=== PATIENT | female | born 1970 | race Caucasian/White ===

== ENCOUNTER 2020-03-01 05:08 | Emergency (ER) | payer BC, SELFPAY ==
[2020-03-01 05:09] VITALS: BP 208/106; PULSE 61; RESP 18; TEMP 36.7; O2SAT 97; BMI 31.6
--- NOTE | 2020-03-01 05:17 | CTR_ITS ---
PROCEDURE INFORMATION: Exam: CT Abdomen And Pelvis Without Contrast Exam date and time: 03/01/2020 5:18 AM Age: 49 years old Clinical indication: Abdominal pain; Flank; Left; Prior surgery; Surgery date: 6+ months; Surgery type: , gastric sleeve; Additional info: Flank/abdominal pain TECHNIQUE: Imaging protocol: Computed tomography of the abdomen and pelvis without contrast. Total DLP: 1699.42 mGy-cm Radiation optimization: All CT scans at this facility use at least one of these dose optimization techniques: automated exposure control; mA and/or kV adjustment per patient size (includes targeted exams where dose is matched to clinical indication); or iterative reconstruction. COMPARISON: CT Abdomen/Pelvis Renal [id number] 08/19/2019 8:05 AM FINDINGS: Lungs: The lung bases are clear. Liver: Unremarkable. Gallbladder and bile ducts: No definite gallbladder abnormality by CT. No biliary tree dilation. Pancreas: Unremarkable. Spleen: Unremarkable. Adrenals: Unremarkable. Kidneys and ureters: Mild left perinephric and periureteric stranding. Mild to moderate left hydronephrosis and hydroureter. There is a 3 mm distal left ureteral calculus, at the UVJ. The calculus is probably in the intramural portion of the distal ureter. It is possible that it has already been passed into the urinary bladder. Please correlate clinically. Somewhat complex appearing cystic lesion again seen in the right kidney, not significantly changed. No right hydronephrosis or visible right ureteral calculus. Stomach and bowel: Prior gastric surgery. There are no CT findings to strongly suggest diverticulitis. Appendix: The appendix is visualized and appears normal. Intraperitoneal space: No free air, ascites, or bowel distention. Vasculature: No evidence for abdominal aortic aneurysm. Lymph nodes: No retroperitoneal adenopathy. Bladder: Small calculus in the urinary bladder/left UVJ, as discussed above. Reproductive: No definite abnormal ovarian/adnexal cyst or mass by CT. Bones/joints: No significant acute finding. Soft tissues: Very small umbilical hernia, containing only fat. CT/CT kidney stone [id number] IMPRESSION: 1. 3 mm distal left ureteral calculus, see above details. 2. Mild to moderate left hydronephrosis and hydroureter. 3. No diverticulitis. 4. Other findings discussed above. Radiation Dose CTDIVOL = (mGy): DLP = 1699.42 (mGy-cm)
--- NOTE | 2020-03-01 05:18 | W.ED.ABDPA2 ---
Documented by User: Myrna Merino 03/01/20 05:21 HPI - Abdominal Pain General: Chief Complaint: Abdominal Pain Stated Complaint: LEFT SIDE FLANK PAIN Time Seen by Provider: 03/01/20 05:09 History of Present Illness: HPI narrative: Ms. Isidro is a nice 49-year-old female who comes in complaining of left flank pain. She describes pain is sharp in nature that radiates from her left back around her flank and into her groin. She is had associated nausea but does not vomit. She denies any fevers or chills. She denies any hematuria, dysuria, vaginal discharge or bleeding. She denies any similar symptoms in the past. She is not tried anything at home for this pain. EMS did give the patient 30 of Toradol IV in route with great relief of her pain although it is still present. The patient is unaware of any aggravating or alleviating factors with this. Associated Symptoms: Reports nausea; Denies chills, coffee ground emesis, constipation, GI cramping, diarrhea, dysuria, fever(s), hematochezia, hematuria, hematemesis, melena, syncope and vomiting Review of Systems General: Reports: other (negative unless marked) Const: Denies: fever, chills, body aches, fatigue, malaise or diaphoresis Eyes: Denies: change in vision or blurry vision ENMT: Denies: throat pain, painful swallowing, hoarseness, ear pain, ear discharge, Change in hearing or nasal discharge Card: Denies: chest pain, palpitations, irregular heart rhythm, syncope, pre-syncope, shortness of breath on exertion or shortness of breath when lying down Resp: Denies: shortness of breath, productive cough, non-productive cough, wheezing, coughing up blood or chest congestion GI: Reports: abdominal pain and nausea; Denies: vomiting, vomiting blood, coffee grounds in vomit, diarrhea, constipation, cramping, blood in stool or black tarry stool : Reports: flank pain; Denies: painful urination, urinary frequency, urinary urgency, decreased urine ouput, urinary incontinence or blood in urine Musc: Denies: neck pain, back pain, extremity pain, extremity swelling, joint pain, joint swelling, joint warmth or joint stiffness Skin/Breast: Denies: rash, skin tenderness or yellow skin Neuro: Denies: headache, numbness in extremities, weakness in extremities, changes in sensation, lack of coordination, difficulty walking, dizziness, vertigo or confusion Endo: Denies: excessive thirst, tired all the time, cold intolerance, excessive sweating, flushing or hot flashes Master/Lymph: Denies: easy bruising, easy bleeding, petechiae or enlarged lymph nodes All/Imm: Denies: hives, throat swelling, tongue swelling, facial swelling or acute wheezing PFSH ED PFSH: Medical History (Updated 03/01/20 @ 06:38 by Neville Dash DO) Coronary artery disease Depression Hypertension Surgical History (Updated 03/01/20 @ 05:21 by Myrna Merino) H/O cardiac catheterization H/O gastric bypass Previous section Social History Smoking and tobacco status: never smoked Physical Exam Const: COMMON NORMALS: no apparent distress, oriented x3, no limitations, healthy appearing and well nourished EXAM LIMITATIONS: no altered mental status GENERAL APPEARANCE: cooperative, well kempt and well developed ORIENTATION/CONSCIOUSNESS: Yes awake HENMT: COMMON NORMALS: normocephalic, head/scalp atraumatic, hearing grossly normal bilaterally, external ears normal, EAC's normal, external nose normal and moist oral mucous membranes HEAD & SCALP: normal to inspection, normocephalic and atraumatic FACE & SINUS: normal facial exam and face symmetric NOSE: external nose normal and nares normal EXTERNAL EAR: Yes external ears normal EXTERNAL AUDITORY CANAL: EAC's normal MOUTH: oral and palatal mucosa normal and tongue normal Eye: COMMON NORMALS: PERRL, EOMs intact bilaterally, conjunctivae normal and no scleral icterus GENERAL EYE: normal appearance of both eyes and normal light reflex CONJUNCTIVA: Yes conjunctivae normal SCLERA: sclerae normal CORNEA: Yes corneas normal PUPIL: Yes PERRL DIRECT OPHTHALMOSCOPY: Yes normal light reflex Neck/C-Spine: COMMON NORMALS: full ROM, no lymphadenopathy, supple, no meningeal signs and no JVD GENERAL: Yes normal visual inspection and Yes trachea midline CERVICAL SPINE: Yes cervical ROM normal Chest: COMMONS NORMALS: inspection of chest normal and palpation of chest normal Resp: COMMON NORMALS: normal respiratory effort, no retractions, no use of accessory muscles and clear to auscultation bilaterally EFFORT & INSPECTION: Yes able to speak in complete sentences AUSCULTATION: clear to auscultation bilaterally Cardio: COMMON NORMALS: no JVD, regular rate, regular rhythm, S1 normal heart sound, S2 normal heart sound, no gallops, no clicks, no murmurs and no rub JUGULAR VENOUS DISTENTION: no JVD RATE: regular rate RHYTHM: regular rhythm HEART SOUNDS: S1 normal and S2 normal GI: COMMON NORMALS: soft to palpation, non-tender, no hepatosplenomegaly and no masses INSPECTION: Yes normal to inspection PALPATION: Yes soft and Yes no hepatosplenomegaly : COMMON NORMALS: Yes no CVA tenderness BLADDER/KIDNEY EXAM: Yes no CVA tenderness Back/Pelvis: COMMON NORMALS: no CVA tenderness, thoracic and lumbar spine normal to inspection, no thoracic nor lumbar tenderness and thoraco-lumbar ROM normal Extremity: COMMON NORMALS: normal to inspection, full ROM, normal capillary refill, no joint enlargement, no clubbing, cyanosis or edema and no calf tenderness Neuro: COMMON NORMALS: oriented x3, CN's II-XII intact bilaterally, moves all extremities, no focal motor deficits and no sensory deficits noted MENINGEAL SIGNS: Yes no meningeal signs Psych: COMMON NORMALS: mental status grossly normal, thought process normal, cooperative, affect normal, speech normal and activity/motor behavior normal APPEARANCE: Yes well kempt SPEECH: Yes normal speech THOUGHT PROCESS: normal thought process Skin: COMMON NORMALS: no rashes or lesions noted, skin turgor normal, no jaundice, no petechiae and no mottling GENERAL SKIN EXAM: no rashes or lesions noted and turgor normal Course Vital Signs: Vital signs: Vital Signs Temperature 98.0 F 03/01/20 05:09 Pulse Rate 88 03/01/20 06:49 Respiratory Rate 18 03/01/20 06:49 Blood Pressure 180/90 03/01/20 06:49 Pulse Oximetry 99 03/01/20 06:49 MDM - Abdominal Pain Lab Data: Labs: Lab Results 03/01/20 03/01/20 03/01/20 Range/Units 05:00 05:00 05:20 WBC 11.2 H (4.0-10.0) 10^3/ uL RBC 4.47 (4.1-5.3) 10^6/u L Hgb 11.2 L (11.5-15.3) g/dL Hct 36.8 L (37.0-47.0) % MCV 82.3 (81-99) fL MCH 25.1 L (28.0-34.0) pg MCHC 30.4 (30.0-36.0) g/dL RDW 14.2 (12.1-15.1) % Plt Count 360 (130-400) 10^3/c mm MPV 9.9 (7.4-10.4) fL Neut % (Auto) 49.9 % Lymph % (Auto) 41.3 % [place] % (Auto) 6.8 % Eos % (Auto) 1.2 % Baso % (Auto) 0.4 % Neut # (Auto) 5.6 (1.8-7.7) 10^3/u L Lymph # (Auto) 4.6 (0.8-4.8) 10^3/u L [place] # (Auto) 0.8 (0.2-0.9) 10^3/u L Eos # (Auto) 0.1 (0.0-0.8) 10^3/u L Baso # (Auto) 0.1 (0.0-0.1) 10^3/u L Nucleated RBC % (a uto) 0 % Nucleated RBCs # 0.0 /100WBC Sodium 138 (136-145) mmol/L Potassium 3.3 L (3.5-5.1) mmol/L Chloride 101 (98-107) mmol/L Carbon Dioxide 22 (22-29) mmol/L Anion Gap 18.3 (5-19) BUN 13 (6-20) mg/dL Creatinine 0.9 (0.5-0.9) mg/dL GFR Calculation 67.1 L (90-130) mL/min Glucose 143 H (65-115) mg/dL Calculated Osmolal ity 285 (285-295) mOsm/k g Calcium 9.0 (8.5-10.5) mg/dL Total Bilirubin 0.5 (0.15-1.2) mg/dL AST 17 (0-32) U/L ALT 15 (0-33) U/L Alkaline Phosphata se 119 H (35-105) IU/L Total Protein 6.6 (6.6-8.7) g/dL Albumin 3.9 (3.5-5.2) g/dL Globulin 2.7 (1.3-4.6) g/dL Lipase 48 (13-60) U/L HCG, Qual Negative (Negative) Urine Color (Yellow) Urine Appearance (CLEAR) Urine pH (5-7) Ur Specific Gravit y (1.005-1.030) Urine Protein (Negative) Urine Glucose (UA) (Normal) Urine Ketones (Negative) Urine Blood (Negative) Urine Nitrate (Negative) Urine Bilirubin (NEGATIVE) Urine Urobilinogen (Negative) mg/dL Ur Leukocyte Rosa Elena ase (Negative) 03/01/20 Range/Units 05:20 WBC (4.0-10.0) 10^3/ uL RBC (4.1-5.3) 10^6/u L Hgb (11.5-15.3) g/dL Hct (37.0-47.0) % MCV (81-99) fL MCH (28.0-34.0) pg MCHC (30.0-36.0) g/dL RDW (12.1-15.1) % Plt Count (130-400) 10^3/c mm MPV (7.4-10.4) fL Neut % (Auto) % Lymph % (Auto) % [place] % (Auto) % Eos % (Auto) % Baso % (Auto) % Neut # (Auto) (1.8-7.7) 10^3/u L Lymph # (Auto) (0.8-4.8) 10^3/u L [place] # (Auto) (0.2-0.9) 10^3/u L Eos # (Auto) (0.0-0.8) 10^3/u L Baso # (Auto) (0.0-0.1) 10^3/u L Nucleated RBC % (a uto) % Nucleated RBCs # /100WBC Sodium (136-145) mmol/L Potassium (3.5-5.1) mmol/L Chloride (98-107) mmol/L Carbon Dioxide (22-29) mmol/L Anion Gap (5-19) BUN (6-20) mg/dL Creatinine (0.5-0.9) mg/dL GFR Calculation (90-130) mL/min Glucose (65-115) mg/dL Calculated Osmolal ity (285-295) mOsm/k g Calcium (8.5-10.5) mg/dL Total Bilirubin (0.15-1.2) mg/dL AST (0-32) U/L ALT (0-33) U/L Alkaline Phosphata se (35-105) IU/L Total Protein (6.6-8.7) g/dL Albumin (3.5-5.2) g/dL Globulin (1.3-4.6) g/dL Lipase (13-60) U/L HCG, Qual (Negative) Urine Color Yellow (Yellow) Urine Appearance Clear (CLEAR) Urine pH 7 (5-7) Ur Specific Gravit y 1.015 (1.005-1.030) Urine Protein Neg (Negative) Urine Glucose (UA) Norm (Normal) Urine Ketones Negative (Negative) Urine Blood Neg (Negative) Urine Nitrate Negative (Negative) Urine Bilirubin Neg (NEGATIVE) Urine Urobilinogen Norm (Negative) mg/dL Ur Leukocyte Rosa Elena ase Negative (Negative) Discharge Plan Discharge Patient Disposition: Home, Self-Care Clinical Impression: Nephrolithiasis Condition: Stable Prescriptions: New hydrocodone-acetaminophen 5-325 mg tablet 1 tab PO Q6H PRN (Reason: pain) Qty: 25 RF: 0 Zofran 4 mg tablet 4 mg PO Q6H PRN (Reason: nausea and vomiting) Qty: 20 RF: 0 Flomax 0.4 mg capsule 0.4 mg PO DAILY Qty: 30 RF: 0 No Action metoprolol succinate 50 mg Tablet Extended Release 24 Hr 50 mg PO DAILY RF: 0 Zoloft 100 mg Tablet 100 mg PO BID RF: 0 lisinopril 10 mg Tablet 10 mg PO DAILY RF: 0 Discharge Orders: Discharge Order (Routine); Ordered 03/01/20 Ordered By: Neville Dash Referrals: Gilmar Fleming MD [Physician] - (renal stone) Discharge Diet: Advance as tolerated Discharge Activity: Increase activity as tolerated Patient Instructions: Kidney Stones (ED) Discharge Date/Time: 03/01/20 06:52 Sign Out Sign Out Data: Patient Sign Out occurred on 03/01/20 at 06:31. Patient's care was discussed, and care was transferred from to Neville Dash DO. Coding Level of Care Code ED Campaign Developer for Chg Fwd Exam Comprehensive Documented by User: Neville Dash DO 03/02/20 08:32 HPI - Abdominal Pain General: Chief Complaint: Abdominal Pain Stated Complaint: LEFT SIDE FLANK PAIN Time Seen by Provider: 03/01/20 05:09 [facility] ED PFSH: Medical History (Updated 03/01/20 @ 06:38 by Neville Dash DO) Coronary artery disease Depression Hypertension Surgical History (Updated 03/01/20 @ 05:21 by Myrna Merino) H/O cardiac catheterization H/O gastric bypass Previous section Social History Smoking and tobacco status: never smoked Course Vital Signs: Vital signs: Vital Signs Temperature 98.0 F 03/01/20 05:09 Pulse Rate 88 03/01/20 06:49 Respiratory Rate 18 03/01/20 06:49 Blood Pressure 180/90 03/01/20 06:49 Pulse Oximetry 99 03/01/20 06:49 MDM - Abdominal Pain MDM Narrative: Medical decision making narrative: CT reviewed patient has a 2 mm stone at the UVJ we will go ahead and discharge her home her pain is well controlled at this time. Reviewed the findings with her will refer her to urology. Discharge home with pain medications tamsulosin and Zofran. Return if has uncontrolled pain Lab Data: Labs: Lab Results 03/01/20 03/01/20 03/01/20 Range/Units 05:00 05:00 05:20 WBC 11.2 H (4.0-10.0) 10^3/ uL RBC 4.47 (4.1-5.3) 10^6/u L Hgb 11.2 L (11.5-15.3) g/dL Hct 36.8 L (37.0-47.0) % MCV 82.3 (81-99) fL MCH 25.1 L (28.0-34.0) pg MCHC 30.4 (30.0-36.0) g/dL RDW 14.2 (12.1-15.1) % Plt Count 360 (130-400) 10^3/c mm MPV 9.9 (7.4-10.4) fL Neut % (Auto) 49.9 % Lymph % (Auto) 41.3 % [place] % (Auto) 6.8 % Eos % (Auto) 1.2 % Baso % (Auto) 0.4 % Neut # (Auto) 5.6 (1.8-7.7) 10^3/u L Lymph # (Auto) 4.6 (0.8-4.8) 10^3/u L [place] # (Auto) 0.8 (0.2-0.9) 10^3/u L Eos # (Auto) 0.1 (0.0-0.8) 10^3/u L Baso # (Auto) 0.1 (0.0-0.1) 10^3/u L Nucleated RBC % (a uto) 0 % Nucleated RBCs # 0.0 /100WBC Sodium 138 (136-145) mmol/L Potassium 3.3 L (3.5-5.1) mmol/L Chloride 101 (98-107) mmol/L Carbon Dioxide 22 (22-29) mmol/L Anion Gap 18.3 (5-19) BUN 13 (6-20) mg/dL Creatinine 0.9 (0.5-0.9) mg/dL GFR Calculation 67.1 L (90-130) mL/min Glucose 143 H (65-115) mg/dL Calculated Osmolal ity 285 (285-295) mOsm/k g Calcium 9.0 (8.5-10.5) mg/dL Total Bilirubin 0.5 (0.15-1.2) mg/dL AST 17 (0-32) U/L ALT 15 (0-33) U/L Alkaline Phosphata se 119 H (35-105) IU/L Total Protein 6.6 (6.6-8.7) g/dL Albumin 3.9 (3.5-5.2) g/dL Globulin 2.7 (1.3-4.6) g/dL Lipase 48 (13-60) U/L HCG, Qual Negative (Negative) Urine Color (Yellow) Urine Appearance (CLEAR) Urine pH (5-7) Ur Specific Gravit y (1.005-1.030) Urine Protein (Negative) Urine Glucose (UA) (Normal) Urine Ketones (Negative) Urine Blood (Negative) Urine Nitrate (Negative) Urine Bilirubin (NEGATIVE) Urine Urobilinogen (Negative) mg/dL Ur Leukocyte Rosa Elena ase (Negative) 03/01/20 Range/Units 05:20 WBC (4.0-10.0) 10^3/ uL RBC (4.1-5.3) 10^6/u L Hgb (11.5-15.3) g/dL Hct (37.0-47.0) % MCV (81-99) fL MCH (28.0-34.0) pg MCHC (30.0-36.0) g/dL RDW (12.1-15.1) % Plt Count (130-400) 10^3/c mm MPV (7.4-10.4) fL Neut % (Auto) % Lymph % (Auto) % [place] % (Auto) % Eos % (Auto) % Baso % (Auto) % Neut # (Auto) (1.8-7.7) 10^3/u L Lymph # (Auto) (0.8-4.8) 10^3/u L [place] # (Auto) (0.2-0.9) 10^3/u L Eos # (Auto) (0.0-0.8) 10^3/u L Baso # (Auto) (0.0-0.1) 10^3/u L Nucleated RBC % (a uto) % Nucleated RBCs # /100WBC Sodium (136-145) mmol/L Potassium (3.5-5.1) mmol/L Chloride (98-107) mmol/L Carbon Dioxide (22-29) mmol/L Anion Gap (5-19) BUN (6-20) mg/dL Creatinine (0.5-0.9) mg/dL GFR Calculation (90-130) mL/min Glucose (65-115) mg/dL Calculated Osmolal ity (285-295) mOsm/k g Calcium (8.5-10.5) mg/dL Total Bilirubin (0.15-1.2) mg/dL AST (0-32) U/L ALT (0-33) U/L Alkaline Phosphata se (35-105) IU/L Total Protein (6.6-8.7) g/dL Albumin (3.5-5.2) g/dL Globulin (1.3-4.6) g/dL Lipase (13-60) U/L HCG, Qual (Negative) Urine Color Yellow (Yellow) Urine Appearance Clear (CLEAR) Urine pH 7 (5-7) Ur Specific Gravit y 1.015 (1.005-1.030) Urine Protein Neg (Negative) Urine Glucose (UA) Norm (Normal) Urine Ketones Negative (Negative) Urine Blood Neg (Negative) Urine Nitrate Negative (Negative) Urine Bilirubin Neg (NEGATIVE) Urine Urobilinogen Norm (Negative) mg/dL Ur Leukocyte Rosa Elena ase Negative (Negative) Discharge Plan Discharge Patient Disposition: Home, Self-Care Clinical Impression: Nephrolithiasis Condition: Stable Prescriptions: New hydrocodone-acetaminophen 5-325 mg tablet 1 tab PO Q6H PRN (Reason: pain) Qty: 25 RF: 0 Zofran 4 mg tablet 4 mg PO Q6H PRN (Reason: nausea and vomiting) Qty: 20 RF: 0 Flomax 0.4 mg capsule 0.4 mg PO DAILY Qty: 30 RF: 0 No Action metoprolol succinate 50 mg Tablet Extended Release 24 Hr 50 mg PO DAILY RF: 0 Zoloft 100 mg Tablet 100 mg PO BID RF: 0 lisinopril 10 mg Tablet 10 mg PO DAILY RF: 0 Discharge Orders: Discharge Order (Routine); Ordered 03/01/20 Ordered By: Neville Dash Referrals: Gilmar Fleming MD [Physician] - (renal stone) Discharge Diet: Advance as tolerated Discharge Activity: Increase activity as tolerated Patient Instructions: Kidney Stones (ED) Discharge Date/Time: 03/01/20 06:52 Sign Out Sign Out Data: Patient Sign Out occurred on 03/01/20 at 06:31. Patient's care was discussed, and care was transferred from to Neville Dash DO. Coding Level of Care Code ED Campaign Developer for Shelleyg Fwd Exam Comprehensive
[2020-03-01 05:25] VITALS: RESP 18; O2SAT 98
[2020-03-01] MEDS: morphine 4 mg/mL SDV 1 mL IVP (05:25)
[2020-03-01] MEDS: ondansetron 2 mg/ML SDV 2 mL 4 MG IVP (05:25)
[2020-03-01] MEDS: sodium chloride 0.9% 1,000 ML 100 ML IV (05:25)
[2020-03-01 05:27] LABS: Basophils # 0.1 10^3/uL (0.0-0.1); Basophils % 0.4 %; Eosinophils # 0.1 10^3/uL (0.0-0.8); Eosinophils % 1.2 %; Hematocrit 36.8 % (37.0-47.0); Hemoglobin 11.2 g/dL (11.5-15.3); Lymphocytes # 4.6 10^3/uL (0.8-4.8); Lymphocytes % 41.3 %; Mean Corpuscular HGB Conc 30.4 g/dL (30.0-36.0); Mean Corpuscular Hemoglobin 25.1 pg (28.0-34.0); Mean Corpuscular Volume 82.3 fL (81-99); Mean Platelet Volume 9.9 fL (7.4-10.4); Monocytes # 0.8 10^3/uL (0.2-0.9); Monocytes % 6.8 %; Neutrophils # 5.6 10^3/uL (1.8-7.7); Neutrophils % 49.9 %; Nucleated Red Blood Cells % 0 %; Platelet Count 360 10^3/cmm (130-400); Red Blood Count 4.47 10^6/uL (4.1-5.3); Red Cell Distribution Width 14.2 % (12.1-15.1); White Blood Count 11.2 10^3/uL (4.0-10.0)
[2020-03-01 05:34] LABS: Bilirubin Urine Neg (NEGATIVE); Blood Urine Neg (Negative); Glucose Urine UA Norm (Normal); Ketones Urine Negative (Negative); Leukocyte Esterase Urine Negative (Negative); Nitrate Urine Negative (Negative); Protein Urine Neg (Negative); Specific Gravity, Urine 1.015 (1.005-1.030); Urine Appearance Clear (CLEAR); Urine Color Yellow (Yellow); Urobilinogen Urine Norm (Negative); pH Urine 7 (5-7)
[2020-03-01 05:35] LABS: Add Urine Culture? No
[2020-03-01 05:36] LABS: HCG Qualitative Urine. Negative (Negative)
--- NOTE | 2020-03-01 05:47 | PC.NURSE ---
pt to CT via stretcher at this time.
[2020-03-01 05:50] LABS: Alanine Aminotransferase 15 U/L (0-33); Albumin Level 3.9 g/dL (3.5-5.2); Alkaline Phosphatase 119 IU/L (35-105); Anion Gap 18.3 (5-19); Aspartate Amino Transferase 17 U/L (0-32); Blood Urea Nitrogen 13 mg/dL (6-20); Carbon Dioxide 22 mmol/L (22-29); Chloride 101 mmol/L (98-107); Globulin 2.7 g/dL (1.3-4.6); Glomerular Filtration Rate 67.1 mL/min (90-130); Glucose 143 mg/dL (65-115); Lipase 48 U/L (13-60); Osmolality Calculated 285 mOsm/kg (285-295); Potassium 3.3 mmol/L (3.5-5.1); Sodium 138 mmol/L (136-145); Total Bilirubin 0.5 mg/dL (0.15-1.2); Total Protein 6.6 g/dL (6.6-8.7)
--- NOTE | 2020-03-01 05:51 | PC.NURSE ---
pt back from CT at this time.
[2020-03-01 06:05] VITALS: BP 181/99; PULSE 86; RESP 18; O2SAT 99
[2020-03-01 06:49] VITALS: BP 180/90; PULSE 88; RESP 18; O2SAT 99
--- NOTE | 2020-03-02 12:57 | DCPLANNER ---
capture manager had message to schedule a follow up appointment for patient with Dr. Fleming. capture manager called the office of Dr. Fleming, spoke with Marina, gave clinic patients information. capture manager was told that patients information would be printed and given to Catie for review. Clinic will call patient with appointment information. capture manager will call for appointment information.
--- NOTE | 2020-03-03 09:14 | DCPLANNER ---
Patient has a follow up appointment scheduled for Tuesday, March 03, 2020 at 11:[address] Fleming. Clinic will call patient with appointment information.
--- NOTE | 2020-03-17 15:26 | DCPLANNER ---
Patient did attend appointment scheduled for 03.03.[address] Fleming.
== END 2020-03-01 06:52 | disposition home or self-care (01) ==
PROVIDERS: Emergency Medicine; Emergency Provider Family Medicine; Family Provider Family Medicine
DX: N20.0 Calculus of kidney (principal); I25.10 Atherosclerotic heart disease of native coronary artery without angina pectoris; I10 Essential (primary) hypertension; F32.9 Major depressive disorder, single episode, unspecified; Z98.84 Bariatric surgery status
CPT/HCPCS: 12345; 74176; 80053; 81001; 81025; 83690; 85025; 96361; 96374; 96375; 99282; 99284; J2270; J2405; J7030

== ENCOUNTER 2020-03-03 10:06 | Outpatient (CLI) | payer BC, SELFPAY ==
--- NOTE | 2020-03-03 10:00 | XR_ITS ---
WS: [id number] ABDOMEN KUB CLINICAL INFORMATION: Renal/ureteral calculi. COMPARISON: CT March 01, 2020 FINDINGS: Mild lumbar curve convex left. 3 mm distal left UVJ calculus seen on the recent CT not defi nitely seen on today's examination which may be due to small size and overlying sigmoid colon versus interval passage. Incidental pelvic phleboliths. No other significant findings. XR/XR KUB [id number] Impression: 1. 3 mm left UVJ calculus seen on the recent CT not definitely seen on today's study which may in part be due to small size and overlying sigmoid colon versu s interval passage. 2. Pelvic phleboliths.
== END 2020-03-03 10:07 | disposition home or self-care (01) ==
LOC: RADWPI 10:10
PROVIDERS: Family Provider Family Medicine; PCP Family Medicine; Visit Provider Urology
DX: N20.0 Calculus of kidney (principal); I87.8 Other specified disorders of veins
CPT/HCPCS: 74018; 81001; 82365

== ENCOUNTER 2020-03-17 09:01 | Outpatient (CLI) | payer BC, SELFPAY ==
--- NOTE | 2020-03-17 07:45 | XR_ITS ---
WS: [id number] ABDOMEN 1 VIEW(S) HISTORY: URETERAL CALCULUS COMPARISON: 03/01/2020 and 03/03/2020 Mild increased amount of air and fecal content. No renal calcifications. Previously described distal LEFT ureteral calcification is not identified. Phleboliths in the pelvis. Calcification overlying the LEFT ilium is in the soft tissues of the LEFT pelvis. No bone abnormality. XR/XR KUB [id number] IMPRESSION: No renal or ureteral calcifications identified.
== END 2020-03-17 09:02 | disposition home or self-care (01) ==
LOC: RAD 09:06
PROVIDERS: Family Provider Family Medicine; PCP Family Medicine; Visit Provider Urology
DX: N20.1 Calculus of ureter (principal)
CPT/HCPCS: 74018; 81001

== ENCOUNTER 2020-04-11 07:55 | Outpatient (CLI) | payer BC, SELFPAY ==
--- NOTE | 2020-04-11 07:58 | CT_ITS ---
WS: [id number] CT ABDOMEN AND PELVIS NONCONTRAST HISTORY: CALCULUS OF DISTAL URETER TECHNIQUE: Imaging performed through the abdomen and pelvis. Coronal and sagittal reformats are submi tted. All CT scans at [facility] use at least one of these dose optimization techniques: automated exposure control; mA and/or kV adjustment per patient size (includes targeted exams where d ose is matched to clinical indication); or iterative reconstruction. DLP: 1617.97 mGy.cm COMPARISON: 03/01/2020, 08/19/2019 Lower thorax: Lung bases are clear. No hiatal hernia. Liver: Normal, no mass or intrahepatic dilatation. Gallbladder: Unremarkable. Pancreas: Normal. Spleen: Normal. Adrenal glands: Normal. Right kidney: Again noted is a lobulated cystic mass with septations from the superior pole. Mass neftaly sures 5.1 x 4.8 x 3.3 cm. Similar in size to the prior study of 08/19/2019. This is not a simple cyst. No increase in size. No additional masses. No obstruction or calcifications. Left kidney: No obstruction or calcifications or mass. Perinephric stranding described on 03/01/2020 lewis s resolved. LEFT ureter is normal size with resolved. Ureteral stranding. Distal LEFT ureteral calcif ication is no longer present. Mild atherosclerosis with no aneurysm. No free fluid, intraperitoneal air or significant lymphadenopathy. GI tract: Prior gastric bypass. Normal appendix. No GI tract obstruction or colitis. Abdominal wall: Fat-containing umbilical hernia. Pelvis: No free fluid or adenopathy. Uterus is midline. No pelvic mass. Osseous structures: Unremarkable. CT/CT kidney stone [id number] IMPRESSION: 1. Interval resolution mild LEFT hydronephrosis and hydroureter. 2. Distal LEFT ureteral calcification is no longer present. 3. No change in the complex cyst with septations upper pole RIGHT kidney since 08/19/2019.
== END 2020-04-11 07:56 | disposition home or self-care (01) ==
LOC: RADWPI 07:57 → RAD 07:57
PROVIDERS: PCP Family Medicine; Visit Provider Urology
DX: N20.1 Calculus of ureter (principal); N13.30 Unspecified hydronephrosis; N28.1 Cyst of kidney, acquired
CPT/HCPCS: 74176; 81001

== ENCOUNTER 2021-08-20 17:47 | Emergency (ER) | payer BC, SELFPAY ==
[2021-08-20 17:57] VITALS: BP 181/106; PULSE 58; RESP 16; TEMP 36.9; O2SAT 100
--- NOTE | 2021-08-20 18:08 | CTR_ITS ---
PROCEDURE INFORMATION: Exam: CT Head Without Contrast Exam date and time: 08/20/2021 6:08 PM Age: 51 years old Clinical indication: Injury or trauma; Other: Hit head with her car door; Blunt trauma (contusions or hematomas) TECHNIQUE: Imaging protocol: Computed tomography of the head without contrast. Radiation optimization: All CT scans at this facility use at least one of these dose optimization techniques: automated exposure control; mA and/or kV adjustment per patient size (includes targeted exams where dose is matched to clinical indication); or iterative reconstruction. COMPARISON: No relevant prior studies available. RADIATION DOSE METRICS: Total DLP (mGy-cm): 923.38 FINDINGS: Brain: Normal. No hemorrhage. Unremarkable white matter. No mass effect. Cerebral ventricles: No ventriculomegaly. Paranasal sinuses: Visualized sinuses are unremarkable. No fluid levels. Mastoid air cells: Visualized mastoid air cells are well aerated. Bones/joints: Unremarkable. No acute fracture. Soft tissues: Unremarkable. CT/CT head wo con* [id number] IMPRESSION: No acute intracranial abnormality. Radiation Dose CTDIVOL = (mGy): DLP = 923.38 (mGy-cm)
[2021-08-20 18:31] VITALS: BP 167/87; PULSE 59; RESP 16; O2SAT 100
--- NOTE | 2021-08-20 18:33 | ED_ITS ---
HPI - Head Injury General: Chief complaint: Head Injury Stated complaint: HEAD INJURY Time Seen by Provider: 08/20/21 18:21 History of Present Illness: HPI Narrative: 51-year-old female comes in today with complaints of headache and nausea. Patient reports that she was going to get into her car to get her phone but she had backed out the other seat, when she reached in and grabbed it and when to come back out she hit the side of the door against the right mandaen. Since then patient has had nausea and significant headache. Patient denies any history of migraines. Patient does take medication for blood pressure and depression. Review of Systems General: Reports: 10 or more systems reviewed and unremarkable except in HPI and below Neuro: Reports: headache(s) PFSH ED PFSH: Medical History (Updated 08/20/21 @ 18:55 by LINDSAY Ramos) Calculus of distal ureter Coronary artery disease Depression Hydronephrosis, left Hypertension Renal cyst, right Surgical History H/O cardiac catheterization H/O gastric bypass Previous section Family History Mother CAD (coronary artery disease) Father , 72 CAD (coronary artery disease) Diabetes Social History Smoking and tobacco status: never smoked Alcohol intake: never Marital status: Single History of recent travel: No Physical Exam Const: COMMON NORMALS: no acute distress and patient oriented x3 GENERAL APPEARANCE: cooperative HENMT: COMMON NORMALS: normocephalic, TM's normal bilaterally and Normal external nose present HEAD & SCALP: normal to inspection and normocephalic NOSE: Normal external nose present TYMPANIC MEMBRANE: TM's normal bilaterally MOUTH: Normal oral and palatal mucosa present Eye: GENERAL EYE: appearance normal, both eyes and all related structures Neck/C-Spine: COMMON NORMALS: full ROM Lymph: LYMPHATIC: no lymphadenopathy noted Chest: COMMONS NORMALS: normal inspection of the chest Resp: COMMON NORMALS: normal respiratory effort EFFORT & INSPECTION: Yes able to speak in complete sentences Cardio: COMMON NORMALS: regular rate and regular rhythm RATE: regular rate RHYTHM: regular rhythm GI: COMMON NORMALS: non-tender Back/Pelvis: COMMON NORMALS: thoracic and lumbar spine normal to inspection Extremity: COMMON NORMALS: normal to inspection Neuro: COMMON NORMALS: patient oriented x3 and moves all extremities Psych: COMMON NORMALS: mental status grossly normal and cooperative Skin: COMMON NORMALS: no rashes or lesions noted GENERAL SKIN EXAM: no rashes or lesions noted Course Vital Signs: Vital signs: Vital Signs Temperature 98.4 F 08/20/21 17:57 Pulse Rate 59 L 08/20/21 18:31 Respiratory Rate 16 08/20/21 18:31 Blood Pressure 167/87 08/20/21 18:31 Pulse Oximetry 100 08/20/21 18:31 MDM - Head Injury MDM Narrative: Medical decision making narrative: 51-year-old female comes in for evaluation of head injury. On exam patient has some tenderness to the right mandaen area. No obvious ecchymosis or swelling is noted in the area. Respirations are even lungs are clear to auscultation. Vital signs are normal except for some elevated blood pressure. Differential diagnosis includes contusion, fracture, intracranial bleeding. CT of the head indicated no fractures or intracranial bleeding. Patient was given a 30 mg injection of ketorolac and 10 mg of Reglan for her headache and nausea. Patient was recommended to go home and rest and follow-up with primary care for further instructions. Patient was written for some ondansetron for nausea. I suspect patient has a mild concussion which should resolve over the next 2 to 3 days. Discharge Plan Discharge Patient Disposition: Home Clinical Impression: Concussion without loss of consciousness Qualifiers: Encounter type: initial encounter Qualified Code(s): S06.0X0A - Concussion without loss of consciousness, initial encounter Condition: Stable Prescriptions: New ondansetron 4 mg tablet,disintegrating 4 mg PO Q8H PRN (Reason: nausea and vomiting) Qty: 7 RF: 0 No Action metoprolol succinate 50 mg Tablet Extended Release 24 Hr 50 mg PO DAILY RF: 0 Zoloft 100 mg Tablet 100 mg PO BID RF: 0 lisinopril 10 mg Tablet 10 mg PO DAILY RF: 0 hydrocodone-acetaminophen 5-325 mg tablet 1 tab PO Q6H PRN (Reason: pain) Qty: 25 RF: 0 Zofran 4 mg tablet 4 mg PO Q6H PRN (Reason: nausea and vomiting) Qty: 20 RF: 0 Discharge Orders: Discharge ED (Routine); Ordered 08/20/21 Ordered By: Bj Santos Referrals: Toya Doan MD [Primary Care Provider] - Discharge Diet: Usual diet Discharge Activity: Increase activity as tolerated Patient Instructions: Minor Head Injury (ED), Opioid Safety Activity Restrictions/Additional Instructions: Home and rest. Drink plenty of fluids. Use acetaminophen or ibuprofen as needed for pain. Use ondansetron for breakthrough nausea. Activity as tolerated. Follow-up with primary care for further instruction. Return to the ER for new concerns. Stand Alone Forms: Work/School Release Coding Level of Care Code ED Ammunition Officer for Chg Fwd Exam Comprehensive
[2021-08-20] MEDS: metoclopramide 5 mg/mL SDV 2 mL 10 MG IM (18:46)
[2021-08-20] MEDS: ketorolac 30 mg/mL INJ IM (18:51)
== END 2021-08-20 19:12 | disposition home or self-care (01) ==
PROVIDERS: Emergency Provider Nurse Practitioner Family; PCP Family Medicine
DX: S06.0X0A Concussion without loss of consciousness, initial encounter (principal); I25.10 Atherosclerotic heart disease of native coronary artery without angina pectoris; I10 Essential (primary) hypertension; W22.09XA Striking against other stationary object, initial encounter
CPT/HCPCS: 70450; 96372; 99283; J1885; J2765

== ENCOUNTER 2022-06-26 07:01 | Outpatient (CLI) | payer BC, SELFPAY ==
[2022-06-26 07:53] VITALS: BMI 34.9
--- NOTE | 2022-06-26 07:55 | NMCV_ITS ---
NM jennifer perf SPECT r/s* [id number] Rylie Isidro Age: 52 Gender: F : 1970 Exam Date: 06/26/2022 08:30 Ordering Phys: Toya Doan MD Technologist: TIFFANIE Mejias Exam Location: [facility] Indications: Chest pain STRESS TEST Please see separate stress test report in [facility] for full findings IMAGE PROTOCOL Rest/Stress 1 Exercise Day Radiopharmaceutical Dose (mCi) Administration Site Administered by Rest: Tc-99m 10.5 IV TIFFANIE Mejias Sestamibi Stress:Tc-99m 33.0 IV TIFFANIE Mejias Sestamijonathan Rest: 26-Jun-2022 60 Discovery 630 Stress: 26-Jun-2022 30 Discovery 630 Radiopharmaceutical was injected at 85 % maximum heart rate. Images obtained in supine and prone position. SPECT RESULTS Technical Quality: Good Raw Data Analysis: Normal Image Corrections: No attenuation or motion correction applied Summed Stress Score: 0 Summed Rest Score: 4 Summed Difference Score: 0 PERFUSION FINDINGS Fairly uniform myocardial tracer uptake. No significant perfusion abnormalities were noted. FUNCTIONAL RESULTS (calculated via Gated SPECT) Stress Image LV EF (%): 71 Stress EDV (mL):99 TID: 0.95 Stress ESV (mL):29 FUNCTIONAL FINDINGS: Segmental wall motion analysis revealing no gross wall motion abnormalities IMPRESSIONS 1. Myocardial perfusion imaging revealing uniform myocardial tracer uptake with no significant perfusion normalities. 2. Normal LV ejection fraction 71%. 3. Segmental wall motion analysis revealing no gross wall motion abnormalities 4. Normal LV volume Low probability for coronary ischemia, based on the above findings Dr Sirena Fitzpatrick MD FACC (Electronically Signed) Final Date: 26 June 2022 18:19 S
--- NOTE | 2022-06-26 07:55 | ECG_ITS ---
[facility] Test Date: 2022-06-26 Pat Name: Rylie Isidro Department: Room: Gender: Female Investor: : 1970 Requested By: Toya Ruiz Order Number: [id number] Jane MD: Sirena Fitzpatrick M.D. Interpretive Statements NAME OF STUDY: EXERCISE SESTAMIBI STRESS TEST INDICATION: Chest tightness, PROCEDURE: The baseline electrocardiogram showed poor R wave progression nonspecific T wave changes. At the baseline, the patient's blood pressure was 178/98 mm Hg with a heart rate of 60. The patient exercised for 7 minutes and 55 seconds on a standard Wang protocol. Patient attained a maximum heart rate of 150 beats per minute(88% of the maximum predicted heart rate) with a blood pressure at the peak exercise of 219/98 mm Hg. The EKG at the peak exercise revealed diffuse nonspecific ST-T changes in the inferolateral leads. Patient did not have any chest pain or any significant arrhythmis with the exercise Sestamibi was injected 1 minute prior to the peak exercise During the recovery phase, there were no new changes. Blood pressure at the end of the recovery phase was 155/96 mm Hg with a heart rate of 76 per minute. CONCLUSION: 1. Nonspecific EKG changes with the treadmill exercise 2. No exercise-induced chest pain or cardiac arrhythmia 3. Fair exercise tolerance, attained a maximum of 10.2 METs. 4. Hypertensive response to exercise 5. Sestamibi/Sestamibi perfusion results pending; see separate report. Electronically Signed On 06-28-2022 17:46:32 CDT by Sirena Fitzpatrick M.D. [email or web address] [place] [place].Sr.Pago/store/OM/[id number]
[2022-06-26 09:40] VITALS: BP 155/96; PULSE 77
== END 2022-06-26 07:02 | disposition home or self-care (01) ==
PROVIDERS: PCP Family Medicine; Visit Provider Family Medicine
DX: R07.89 Other chest pain (principal)
CPT/HCPCS: 78452; 93017; A9500

== ENCOUNTER → 2023-05-07 09:16 | Outpatient (BNVA) | payer BC, SELFPAY | PROVIDERS: PCP Family Medicine; Visit Provider Internal Medicine Cardiovascular Disease | DX: I25.10 Atherosclerotic heart disease of native coronary artery without angina pectoris (principal) | CPT/HCPCS: 93005 ==

== ENCOUNTER 2023-05-19 08:36 | Outpatient (CLI) | payer BC, SELFPAY ==
--- NOTE | 2023-05-19 08:45 | USCV_ITS ---
Rylie Isidro Age: 53 Gender: F : 1970 Exam Date: 05/19/2023 09:09 Ordering Phys: Sharon Johnson MD ([email or web address]) Technologist: Ai Linares [place] [facility] [place]: CAD., SOB, HTN BP: 132 / 80 HR: 50 Rhythm: Sinus Technical Quality: Adequate MEASUREMENTS (Male / Female) Normal Values 2D ECHO LV Diastolic Diameter PLAX 4.3 cm 4.2 - 5.9 / 3.9 - 5.3 cm LV Systolic Diameter PLAX 2.3 cm IVS Diastolic Thickness 1.7 cm 0.6 - 1.0 / 0.6 - 0.9 cm IVS Systolic Thickness 1.8 cm LVPW Diastolic Thickness 1.0 cm 0.6 - 1.0 / 0.6 - 0.9 cm LVPW Systolic Thickness 2.1 cm LV Ejection Fraction 2D Teich 79.0 % LV Ejection Fraction MOD 2C 59.2 % LV Ejection Fraction 2C AL 59.5 % LA Diameter 3.8 cm LA Width 4.0 cm LA Height 6.0 cm RA Width 3.2 cm RA Height 4.1 cm Aorta at Sinotubular Diameter 2.6 cm IVC Diameter 1.6 cm M-MODE Aortic Annulus Diameter 2.8 cm LA Ao Ratio MM 1.4 MV E Point Septal Separation 0.8 cm DOPPLER AV Peak Velocity 131.0 cm/s LVOT Peak Velocity 92.0 cm/s MV Peak Velocity 121.0 cm/s MV Area PHT 4.4 cm squared Mitral E to A Ratio 2.1 MV E' Velocity 62.5 cm/s Mitral E to MV E' Ratio 8.5 Mitral E to LV E' Lateral Ratio 7.5 Mitral E to LV E' Septal Ratio 9.8 TR Peak Velocity 258.0 cm/s TR Peak Gradient 26.6 mmHg PV Peak Velocity 76.0 cm/s RV Acceleration Time 0.2 s RV Ejection Time 0.4 s RV AcT/ET 0.5 FINDINGS Left Ventricle Normal left ventricular size, systolic function and wall thickness, with no regional wall motion abnormalities. Left ventricular ejection fraction is estimated at 60 %. Normal diastolic function. Right Ventricle Normal right ventricular size and systolic function. Right ventricular systolic pressure 30 mmHg. Right Atrium Normal right atrial size. Left Atrium Normal left atrial size. Mitral Valve Structurally normal mitral valve. No mitral valve stenosis. Mild mitral valve regurgitation. Aortic Valve Structurally normal trileaflet aortic valve. No aortic valve stenosis. No aortic valve regurgitation. Tricuspid Valve Structurally normal tricuspid valve. No tricuspid valve stenosis. Trace tricuspid valve regurgitation. Pulmonic Valve Structurally normal pulmonic valve. No pulmonary valve stenosis. Trace pulmonary valve regurgitation. Pericardium No pericardial effusion. Aorta Normal size aortic root and proximal ascending aorta. IVC Normal IVC dimension with >50% respiratory change of the inferior vena cava. CONCLUSIONS 1. Normal left ventricular size, systolic function and wall thickness, with no regional wall motion abnormalities. Left ventricular ejection fraction is estimated at 60 %. Normal diastolic function. 2. Normal right ventricular size and systolic function. 3. Mild mitral valve regurgitation. 4. Comparison to previous study dated 02/26/2016 is not possible d/t TDS study. Sharon Johnson MD (Electronically Signed) Final Date: 21 May 2023 15:06 S
== END 2023-05-19 08:37 | disposition home or self-care (01) ==
PROVIDERS: PCP Family Medicine; Visit Provider Internal Medicine Cardiovascular Disease
DX: I25.10 Atherosclerotic heart disease of native coronary artery without angina pectoris (principal); R06.02 Shortness of breath
CPT/HCPCS: 93306

== ENCOUNTER 2023-06-17 19:11 | Emergency (ER) | payer BC, SELFPAY ==
[2023-06-17] VITALS (9 sets, daily range): BP systolic 145–204; BP diastolic 72–120; PULSE 50–80; RESP 14–20; TEMP 36.7; O2SAT 94–100; BMI 38.2
--- NOTE | 2023-06-17 19:26 | ECG_ITS ---
[facility] Test Date: 2023-06-17 Pat Name: Rylie Isidro Department: Room: Gender: Female Student Officer: : 1970 Requested By: Candido Coley Order Number: [id number] Jane MD: Sharon Johnson M.D. Measurements Intervals [place] Rate: 53 P: 31 TN: 177 QRS: 18 QRSD: 97 T: 19 QT: 407 QTc: 383 Interpretive Statements SINUS BRADYCARDIA LOW QRS VOLTAGE IN PRECORDIAL LEADS [QRS DEFLECTION < 1.0 mV IN CHEST LEADS] POSSIBLE ANTERIOR MYOCARDIAL INFARCTION , OF INDETERMINATE AGE [30 ms Q WAVE IN V3/V4, OR R < 0.2 mV IN V4] Compared to ECG 05/07/2023 09:22:47 Myocardial infarct finding now present Electronically Signed On 06-17-2023 20:10:49 CDT by Sharon Johnson M.D. [email or web address] GmbHwhitfield medical surgical hospitalTicket Mavrixst[facility].[employer]/store/Ov/[id number]
--- NOTE | 2023-06-17 19:26 | XRR_ITS ---
PROCEDURE INFORMATION: Exam: XR Chest Exam date and time: 06/17/2023 7:40 PM Age: 53 years old Clinical indication: Pain; Chest pressure; Additional info: Cp TECHNIQUE: Imaging protocol: Radiologic exam of the chest. Views: 1 view. COMPARISON: CR XR chest 1V [id number] 05/03/2019 1:34 PM FINDINGS: Lungs: Unremarkable. No consolidation. Pleural spaces: Unremarkable. No pleural effusion. No pneumothorax. Heart/Mediastinum: Cardiomegaly. Bones/joints: Unremarkable. XR/XR chest 1V portable [id number] IMPRESSION: Cardiomegaly, negative for infiltrate
[2023-06-17] MEDS: aspirin 81 mg Chew Tablet 324 MG PO (19:36)
[2023-06-17] MEDS: hyDRALAzine 20 mg/mL INJ 1 mL 10 MG IVP ×3 (19:36→22:21)
--- NOTE | 2023-06-17 19:36 | W.ED.CHESTPA ---
HPI - Chest Pain General: Chief Complaint: Chest Pain Stated Complaint: cp Time Seen by Provider: 06/17/23 19:24 Source: patient Mode of arrival: ambulatory Limitations: no limitations History of Present Illness: 53-year-old female states that she been having chest pain off and on for months she actually scheduled see cardiology tomorrow states that today she has felt very fatigued and weak she had some chest pains with tingling down her left arm. States she been hypertensive today more than normal her blood pressure is over 200 here. She denies any worsening proving factors states that currently she is having no chest pain denies any shortness of breath. Associated symptoms: Deny abdominal pain, dyspnea, fever(s), nausea or vomiting Review of Systems Const: Reports: fatigue and malaise; Denies: fever(s), chills, body aches or change in appetite Eyes: Denies: blurry vision or eye discomfort ENMT: Denies: throat pain or dental pain Card: Reports: chest pain Resp: Denies: dyspnea GI: Denies: abdominal pain, nausea, vomiting or diarrhea Musc: Denies: neck pain or back pain Skin/Breast: Denies: rash Neuro: Denies: headache(s) PFSH ED PFSH: Medical History (Updated 06/17/23 @ 22:54 by Candido Coley MD) Calculus of distal ureter Coronary artery disease Depression Hydronephrosis, left Hypertension Renal cyst, right Surgical History H/O cardiac catheterization H/O gastric bypass Previous section Family History Mother CAD (coronary artery disease) Father , 72 CAD (coronary artery disease) Diabetes Myocardial infarction Social History Smoking and tobacco status: never smoked Alcohol intake: never Substance/Drug Use: never Marital status: Single Physical Exam Const: COMMON NORMALS: no acute distress, patient oriented x3 and healthy appearing HENMT: COMMON NORMALS: normocephalic and atraumatic HEAD & SCALP: normocephalic and atraumatic Eye: COMMON NORMALS: EOMs intact bilaterally and conjunctivae normal CONJUNCTIVA: Yes conjunctivae normal Neck/C-Spine: COMMON NORMALS: full ROM and supple Chest: COMMONS NORMALS: normal inspection of the chest and normal palpation of entire chest wall Resp: COMMON NORMALS: normal respiratory effort, No retractions, No use of accessory muscles and clear to auscultation bilaterally AUSCULTATION: clear to auscultation bilaterally Cardio: COMMON NORMALS: regular rate, regular rhythm and No murmurs present (Cardio) RATE: regular rate RHYTHM: regular rhythm GI: COMMON NORMALS: Normal to inspection, nondistended, normoactive bowel sounds present, Soft to palpation, non-tender and no masses PALPATION: Yes Soft to palpation Extremity: COMMON NORMALS: normal to inspection and full ROM Neuro: COMMON NORMALS: patient oriented x3, moves all extremities and no focal motor deficits Psych: COMMON NORMALS: mental status grossly normal, Normal thought process present and cooperative THOUGHT PROCESS: Normal thought process present Skin: COMMON NORMALS: no rashes or lesions noted and no wounds GENERAL SKIN EXAM: no rashes or lesions noted Course Vital Signs: Vital signs: Vital Signs Temperature 98.1 F 06/17/23 19:19 Pulse Rate 80 06/17/23 22:56 Respiratory Rate 20 H 06/17/23 22:56 Blood Pressure 163/86 06/17/23 22:56 Pulse Oximetry 97 06/17/23 22:56 Oxygen Delivery Me thod Room Air 06/17/23 22:56 MDM - Chest Pain Medical Decision Making Patient presents here with chest pains atypical in nature she been having it for months she is well-appearing here she has been hypertensive. CT is normal blood pressure is improved she does see cardiology tomorrow she is to follow-up as scheduled return if worsening she understands agrees to plan. Medical Records I reviewed the patient's medical records. Lab Data I reviewed the patient's lab results. 06/17/23 19:39 06/17/23 19:39 Radiology Impressions Chest X-Ray 06/17/23 19:26 IMPRESSION: Cardiomegaly, negative for infiltrate Head CT 06/17/23 22:21 IMPRESSION: No acute intracranial abnormality. Laboratory Results WBC 10.9 10^3/uL (4.0-10.0) H 06/17/23 19:39 RBC 4.81 10^6/uL (4.1-5.3) 06/17/23 19:39 Hgb 9.3 g/dL (11.5-15.3) L 06/17/23 19:39 Hct 34.8 % (37.0-47.0) L 06/17/23 19:39 MCV 72.3 fl (81-99) L 06/17/23 19:39 MCH 19.3 pg (28.0-34.0) L 06/17/23 19:39 MCHC 26.7 g/dL (30.0-36.0) L 06/17/23 19:39 RDW 17.9 % (12.1-15.1) H 06/17/23 19:39 Plt Count 385 10^3/cmm (130-400) 06/17/23 19:39 MPV 9.2 fL (7.4-10.4) 06/17/23 19:39 Neut % (Auto) 56.3 % 06/17/23 19:39 Lymph % (Auto) 33.9 % 06/17/23 19:39 [place] % (Auto) 6.6 % 06/17/23 19:39 Eos % (Auto) 2.0 % 06/17/23 19:39 Baso % (Auto) 0.8 % 06/17/23 19:39 Neut # (Auto) 6.16 10^3/uL (1.8-7.7) 06/17/23 19:39 Lymph # (Auto) 3.7 10^3/uL (0.8-4.8) 06/17/23 19:39 [place] # (Auto) 0.7 10^3/uL (0.2-0.9) 06/17/23 19:39 Eos # (Auto) 0.2 10^3/uL (0.0-0.8) 06/17/23 19:39 Baso # (Auto) 0.1 10^3/uL (0.0-0.1) 06/17/23 19:39 Nucleated RBC % (auto) 0 % 06/17/23 19:39 Nucleated RBCs # 0.0 /100WBC 06/17/23 19:39 PT 12.40 SECONDS (12.1-14.9) 06/17/23 19:39 INR 0.90 (0.8-1.2) 06/17/23 19:39 Sodium 139 mmol/L (136-145) 06/17/23 19:39 Potassium 4.4 mmol/L (3.5-5.1) 06/17/23 19:39 Chloride 104 mmol/L (98-107) 06/17/23 19:39 Carbon Dioxide 25 mmol/L (22-29) 06/17/23 19:39 Anion Gap 14.4 (5-19) 06/17/23 19:39 BUN 13 mg/dL (6-20) 06/17/23 19:39 Creatinine 0.8 mg/dL (0.5-0.9) 06/17/23 19:39 GFR Calculation 75.6 mL/min (90-130) L 06/17/23 19:39 Glucose 86 mg/dL (65-115) 06/17/23 19:39 Calculated Osmolality 287 mOsm/kg (285-295) 06/17/23 19:39 Calcium 8.8 mg/dL (8.5-10.5) 06/17/23 19:39 Total Bilirubin 0.2 mg/dL (0.15-1.2) 06/17/23 19:39 AST 16 U/L (0-32) 06/17/23 19:39 ALT 11 U/L (0-33) 06/17/23 19:39 Alkaline Phosphatase 134 U/L (35-105) H 06/17/23 19:39 Troponin T Baseline 6 ng/L (0-10) 06/17/23 19:39 Troponin T 120 Minute 8.17 ng/L (0-10) 06/17/23 21:46 Delta Troponin T 2.17 ABS# (0-10) 06/17/23 21:46 Total Protein 6.9 g/dL (6.6-8.7) 06/17/23 19:39 Albumin 4.0 g/dL (3.5-5.2) 06/17/23 19:39 Globulin 2.9 g/dL (1.3-4.6) 06/17/23 19:39 TSH 2.02 uIU/mL (0.27-4.20) 06/17/23 19:39 EKG Data EKG 1: I personally reviewed and interpreted this EKG as follows: EKG interpretation date: 06/17/23 EKG interpretation time: 19:17 Interpretation: sinus sana hr [address] or t wave abnormalities qrs 97 qtc 389 EKG 2: I personally reviewed and interpreted this EKG as follows: EKG interpretation date: 06/17/23 EKG interpretation time: 21:37 Interpretation: nsr hr [address] or t wave abnormalities qrs 96qtc 416 Discharge Plan Discharge Patient Disposition: Home Clinical Impression: Chest pain, Hypertension Condition: Stable Prescriptions: No Action escitalopram oxalate 20 mg tablet 20 mg PO DAILY lisinopril 20 mg tablet 20 mg PO DAILY aspirin [Adult Low Dose Aspirin] 81 mg tablet,delayed release (DR/EC) 81 mg PO DAILY metoprolol succinate 50 mg Tablet Extended Release 24 Hr 50 mg PO DAILY Discharge Orders: Discharge ED (Routine); Ordered 06/17/23 Ordered By: Candido Coley Referrals: Toya Doan MD [Primary Care Provider] - Discharge Diet: Advance as tolerated Discharge Activity: Resume usual activity Patient Instructions: Chest Pain (ED), Hypertension (ED) Coding Level of Care Code ED Hide Measuring Machine Operator for Chg Quin
[2023-06-17 19:56] LABS: Basophils # 0.1 10^3/uL (0.0-0.1); Basophils % 0.8 %; Eosinophils # 0.2 10^3/uL (0.0-0.8); Hematocrit 34.8 % (37.0-47.0); Hemoglobin 9.3 g/dL (11.5-15.3); Lymphocytes # 3.7 10^3/uL (0.8-4.8); Lymphocytes % 33.9 %; Mean Corpuscular HGB Conc 26.7 g/dL (30.0-36.0); Mean Corpuscular Hemoglobin 19.3 pg (28.0-34.0); Mean Corpuscular Volume 72.3 fl (81-99); Mean Platelet Volume 9.2 fL (7.4-10.4); Monocytes # 0.7 10^3/uL (0.2-0.9); Monocytes % 6.6 %; Neutrophils # 6.16 10^3/uL (1.8-7.7); Neutrophils % 56.3 %; Nucleated Red Blood Cells % 0 %; Platelet Count 385 10^3/cmm (130-400); Red Blood Count 4.81 10^6/uL (4.1-5.3); Red Cell Distribution Width 17.9 % (12.1-15.1); White Blood Count 10.9 10^3/uL (4.0-10.0)
[2023-06-17 20:26] LABS: Troponin(5th) Baseline 6 ng/L (0-10)
[2023-06-17] MEDS: acetaminophen 500 mg Tablet 1000 MG PO (21:10)
--- NOTE | 2023-06-17 21:37 | ECG_ITS ---
[facility] Test Date: 2023-06-17 Pat Name: Rylie Isidro Department: Room: Gender: Female Instrumentation Designer: : 1970 Requested By: Candido Coley Order Number: [id number] Jane MD: Sharon Johnson M.D. Measurements Intervals [place] Rate: 71 P: 47 WA: 209 QRS: 9 QRSD: 96 T: 13 QT: 394 QTc: 429 Interpretive Statements SINUS RHYTHM LOW QRS VOLTAGE IN PRECORDIAL LEADS [QRS DEFLECTION < 1.0 mV IN CHEST LEADS] Compared to ECG 06/17/2023 19:17:04 Sinus bradycardia no longer present Myocardial infarct finding no longer present Electronically Signed On 06-18-2023 10:22:01 CDT by Sharon Johnson M.D. [email or web address]/[id number]
[2023-06-17 22:13] LABS: Troponin 5 2HR 8.17 ng/L (0-10)
[2023-06-17 22:16] LABS: Alanine Aminotransferase 11 U/L (0-33); Alkaline Phosphatase 134 U/L (35-105); Anion Gap 14.4 (5-19); Aspartate Amino Transferase 16 U/L (0-32); Blood Urea Nitrogen 13 mg/dL (6-20); Calcium 8.8 mg/dL (8.5-10.5); Carbon Dioxide 25 mmol/L (22-29); Chloride 104 mmol/L (98-107); Globulin 2.9 g/dL (1.3-4.6); Glomerular Filtration Rate 75.6 mL/min (90-130); Glucose 86 mg/dL (65-115); Osmolality Calculated 287 mOsm/kg (285-295); Potassium 4.4 mmol/L (3.5-5.1); Sodium 139 mmol/L (136-145); Total Bilirubin 0.2 mg/dL (0.15-1.2); Total Protein 6.9 g/dL (6.6-8.7)
[2023-06-17 22:19] LABS: Troponin 5 2HR Delta 2.17 ABS# (0-10)
--- NOTE | 2023-06-17 22:21 | CTR_ITS ---
PROCEDURE INFORMATION: Exam: CT Head Without Contrast Exam date and time: 06/17/2023 10:31 PM Age: 53 years old Clinical indication: Pain; Headache not specified; Additional info: VARGAS TECHNIQUE: Imaging protocol: Computed tomography of the head without contrast. Radiation optimization: All CT scans at this facility use at least one of these dose optimization techniques: automated exposure control; mA and/or kV adjustment per patient size (includes targeted exams where dose is matched to clinical indication); or iterative reconstruction. REPORTING DATA: Count of CT and Cardiac NM exams in prior 12 months: This patient has received [address] and 0 known cardiac nuclear medicine studies in the 12 months prior to the current study. COMPARISON: CT head wo con* [id number] 08/20/2021 6:11 PM RADIATION DOSE METRICS: Total DLP (mGy-cm): 1126.48 FINDINGS: Brain: Normal. No hemorrhage. Unremarkable white matter. No mass effect. Cerebral ventricles: No ventriculomegaly. Paranasal sinuses: Visualized sinuses are unremarkable. No fluid levels. Mastoid air cells: Visualized mastoid air cells are well aerated. Bones/joints: Unremarkable. No acute fracture. Soft tissues: Unremarkable. CT/CT head wo con* [id number] IMPRESSION: No acute intracranial abnormality.
[2023-06-17 22:23] LABS: Thyroid Stimulating Hormone 2.02 uIU/mL (0.27-4.20)
[2023-06-17] MEDS: metoclopramide 5 mg/mL SDV 2 mL IVP (22:52)
[2023-06-17] MEDS: diphenhydrAMINE 50 mg/mL SDV 1mL 25 MG IVP (22:52)
== END 2023-06-17 23:06 | disposition home or self-care (01) ==
PROVIDERS: Emergency Provider Emergency Medicine; PCP Family Medicine
DX: R07.9 Chest pain, unspecified (principal); I10 Essential (primary) hypertension; Z79.82 Long term (current) use of aspirin; I25.10 Atherosclerotic heart disease of native coronary artery without angina pectoris
CPT/HCPCS: 36415; 70450; 71045; 80053; 84443; 84484; 85025; 85610; 93005; 96374; 96375; 96376; 99285; J0360; J1200; J2765

== ENCOUNTER 2023-06-25 07:51 | Outpatient (CLI) | payer BC, SELFPAY ==
--- NOTE | 2023-06-25 08:00 | USCV_ITS ---
Rylie Isidro Age: 53 Gender: F : 1970 Exam Date: 06/25/2023 08:00 Ordering Phys: Catie Wiseman Technologist: CT [place]am [place] [facility] [place] Indication: htn Aortic Velocity @ SMA (cm/s) 140 RIGHT KIDNEY LEFT KIDNEY Velocity (cm/s) Velocity (cm/s) Sys/Parrish Sys/Parrish Resistive Index Resistive Index 126.0 / 34.6 0.73 Proximal Renal Artery 73.6 / 18.0 0.76 81.5 / 28.6 0.65 Mid Renal Artery 61.8 / 14.0 0.77 99.8 / 26.3 0.74 Distal Renal Artery 37.1 / 11.2 0.70 70.7 / 22.2 0.69 Hilar 30.3 / 11.8 0.61 51.3 / 24.9 0.51 Upper Pole 41.4 / 18.2 0.56 26.8 / 7.1 0.74 Mid Pole 27.9 / 9.6 0.65 29.3 / 11.6 0.61 Lower Pole 27.4 / 9.6 0.65 0.90 Renal Aortic Ratio 0.53 Accleration Index (cm/sec2) 1555.0 Hilar 597.00 0 229.00 Upper Pole 159.00 505.00 Mid Pole 91.00 145.00 Lower Pole 273.00 114.5 Kidney Length (mm) 113.5 FINDINGS normal us CONCLUSIONS Normal kidney dimensions bilaterally. No hydronephrosis Normal renal arterial Doppler velocities and indices. No significant renal artery stenosis Eddie Christian MD (Electronically Signed) Final Date: 26 June 2023 17:21 S
== END 2023-06-25 07:52 | disposition home or self-care (01) ==
PROVIDERS: PCP Family Medicine; Visit Provider Nurse Practitioner Family
DX: I10 Essential (primary) hypertension (principal)
CPT/HCPCS: 93975

== ENCOUNTER 2024-03-25 15:38 | Outpatient (CLI) | payer OTHER, SELFPAY ==
--- NOTE | 2024-03-25 15:30 | MM_ITS ---
WS: [id number] SCREENING DIGITAL BREAST TOMOSYNTHESIS MAMMOGRAM WITH CAD HISTORY: SCREENING COMPARISON: 11/10/2018 Bilateral CC and MLO with tomosynthesis and synthetic mammography submitted. Computer aided detection analyzed. Breast composition: There are scattered areas of fibroglandular density. There is a new asymmetry neftaly suring 5 mm seen only on the LEFT CC projection in the medial mid breast. This will need to be furthe r evaluated. Additional benign calcifications. IMPRESSION: MM/[place] [id number] BI-RADS: 0-Incomplete: Need additional imaging evaluation FOLLOW UP: Need Additional Imaging LEFT breast: Spot compression views (CC ). True ML. Ultrasound to follow if abn ormality persists.
== END 2024-03-25 15:39 | disposition home or self-care (01) ==
LOC: MOBLMAM 15:51
PROVIDERS: PCP Family Medicine; Visit Provider Family Medicine
DX: Z12.31 Encounter for screening mammogram for malignant neoplasm of breast (principal); R92.1 Mammographic calcification found on diagnostic imaging of breast; R92.8 Other abnormal and inconclusive findings on diagnostic imaging of breast
CPT/HCPCS: 77063; 77067

== ENCOUNTER 2024-04-27 13:50 | Outpatient (CLI) | payer OTHER, SELFPAY ==
--- NOTE | 2024-04-27 14:02 | MM_ITS ---
WS: [id number] DIAGNOSTIC LEFT DIGITAL TOMOSYNTHESIS MAMMOGRAPHY WITH CAD. HISTORY: ABNORMAL MAMMO COMPARISON: 03/25/2024 and 11/10/2018 Technique: Spot compression views LEFT CC and MLO and LEFT mediolateral. Breast composition: There are scattered areas of fibroglandular density. Asymmetry noted in the media l breast does not persist with additional imaging. No residual suspicious mass. No calcifications. MM/[place] [id number] IMPRESSION: BI-RADS: 2-Benign FOLLOW UP: 1 Year Follow-up Return to annual screening mammography.
== END 2024-04-27 13:51 | disposition home or self-care (01) ==
LOC: RAD 13:50
PROVIDERS: PCP Family Medicine; Visit Provider Family Medicine
DX: Z12.31 Encounter for screening mammogram for malignant neoplasm of breast (principal); R92.8 Other abnormal and inconclusive findings on diagnostic imaging of breast; R92.322 Mammographic fibroglandular density, left breast
CPT/HCPCS: 77061; G0279

== ENCOUNTER 2024-11-28 22:42 | Emergency (ER) | payer OTHER, SELFPAY ==
--- NOTE | 2024-11-28 22:43 | ECG_ITS ---
[employer] [facility] Test Date: 2024-11-28 Pat Name: Rylie Isidro Department: Room: Gender: Female Lead Burner: : 1970 Requested By: Nile Chow Order Number: [id number] Jane MD: Oleg Macario M.D. Measurements Intervals [place] Rate: 74 P: 51 [place]: 199 QRS: -30 QRSD: 93 T: 3 QT: 375 QTc: 419 Interpretive Statements SINUS RHYTHM LOW QRS VOLTAGE IN PRECORDIAL LEADS [QRS DEFLECTION < 1.0 mV IN CHEST LEADS] POSSIBLE ANTERIOR MYOCARDIAL INFARCTION , PROBABLY OLD [30 ms Q WAVE IN V3/V4, OR R < 0.2 mV IN V4] Compared to ECG 06/17/2023 21:37:36 Myocardial infarct finding now present Electronically Signed On 11-29-2024 16:49:53 EDGER FEEDER by Oleg Macario M.D. [id number]
[2024-11-28 22:44] VITALS: BP 222/94; PULSE 72; RESP 22; TEMP 36.7; O2SAT 98; BMI 39.9
--- NOTE | 2024-11-28 22:47 | XRR_ITS ---
PROCEDURE INFORMATION: Exam: XR Chest Exam date and time: 11/28/2024 11:14 PM Age: 54 years old Clinical indication: Chest pressure; Patient HX: C/O chest pain; Additional info: Cp TECHNIQUE: Imaging protocol: Radiologic exam of the chest. Views: 1 view. COMPARISON: CR XR chest 1V portable [id number] 06/17/2023 7:40 PM FINDINGS: Lungs: Unremarkable. No consolidation. Pleural spaces: Unremarkable. No pleural effusion. No pneumothorax. Heart/Mediastinum: Unremarkable. No cardiomegaly. Bones/joints: Unremarkable. XR/XR chest 1V portable [id number] IMPRESSION: No acute findings.
[2024-11-28 23:11] LABS: Basophils # 0.1 10^3/uL (0.0-0.1); Basophils % 0.7 %; Eosinophils # 0.2 10^3/uL (0.0-0.8); Eosinophils % 1.8 %; Hematocrit 45.4 % (36-47); Lymphocytes % 27.5 %; Mean Corpuscular HGB Conc 32.2 g/dL (30-55); Mean Corpuscular Volume 93.2 fl (85-98); Mean Platelet Volume 9.4 fL (7.4-10.4); Monocytes # 0.8 10^3/uL (0.2-0.9); Monocytes % 7.1 %; Neutrophils # 6.84 10^3/uL (1.8-7.7); Neutrophils % 62.2 %; Nucleated Red Blood Cells % 0 %; Platelet Count 277 10^3/cmm (157-399); Red Blood Count 4.87 10^6/uL (3.85-5.65); Red Cell Distribution Width 13.2 % (12.1-15.1)
--- NOTE | 2024-11-28 23:17 | ED_ITS ---
HPI - Chest Pain 2 General: Chief Complaint: Chest Pain Stated Complaint: Chest Pains Time Seen by Provider: 11/28/24 23:17 History of Present Illness: Patient presents to the ER with complaints of midsternal chest pain numbness and tingling radiates into both arms. Patient states she has had this before but not for a long time. She does have cardiac history with LAD stent back 15 years ago and her last stress test 3 to 4 years ago. Patient has been recently bronched diagnosed with bronchitis. Does have a cough due to this. Patient denies any shortness of breath, diaphoresis, nausea vomiting Related Data Home Medications Medication Instructions Recorded Confirmed aspirin 81 mg tablet,delayed 81 mg PO DAILY 05/07/23 06/18/23 release (Adult Low Dose Aspirin) escitalopram oxalate 20 mg tablet 20 mg PO DAILY 05/07/23 06/18/23 lisinopril 20 mg tablet 20 mg PO DAILY 05/07/23 06/18/23 metoprolol succinate 50 mg 25 mg PO DAILY 06/18/23 06/18/23 tablet,extended release 24 hr Previous Rx's Medication Instructions Recorded hydralazine 10 mg tablet 10 mg PO BID PRN hypertension #60 06/18/23 tabs Allergies Allergy/AdvReac Type Severity Reaction Status Date / Time Penicillins Allergy Mild ALGY-Rash Verified 06/18/23 11:05 Review of Systems 2 General: Reports: 10 or more systems reviewed and unremarkable except in HPI and below PFSH ED 2 PFSH: Medical History (Updated 11/29/24 @ 01:31 by Nile Chow DO) Renal cyst, right Hydronephrosis, left Calculus of distal ureter Coronary artery disease Depression Hypertension Surgical History H/O cardiac catheterization Previous section H/O gastric bypass Family History Mother CAD (coronary artery disease) Father , 72 CAD (coronary artery disease) Diabetes Myocardial infarction Social History Smoking and tobacco/nicotine status: never used tobacco/nicotine Alcohol intake: never Substance/Drug Use: never Marital status: Single Physical Exam 2 Const: COMMON NORMALS: no acute distress, average body habitus, patient oriented x3, no limitations, healthy appearing, alert and well nourished HENMT: COMMON NORMALS: normocephalic, atraumatic, hearing grossly normal bilaterally, external ears normal, Normal external nose present and moist oral mucous membranes HEAD & SCALP: normocephalic and atraumatic NOSE: Normal external nose present EXTERNAL EAR: Yes external ears normal Neck/C-Spine: COMMON NORMALS: no JVD Chest: COMMONS NORMALS: normal inspection of the chest and normal palpation of entire chest wall Resp: COMMON NORMALS: normal respiratory effort, No retractions, No use of accessory muscles and clear to auscultation bilaterally AUSCULTATION: clear to auscultation bilaterally Cardio: COMMON NORMALS: no JVD, regular rate, regular rhythm, S1 normal heart sound present, S2 normal heart sound present, No gallops present (Cardio), No clicks present (Cardio), No murmurs present (Cardio) and No rub (Cardio) R ATE: regular rate RHYTHM: regular rhythm HEART SOUNDS: S1 normal heart sound present and S2 normal heart sound present GI: COMMON NORMALS: Normal to inspection, nondistended, normoactive bowel sounds present, Soft to palpation, non-tender, No hepatosplenomegaly present and no masses PALPATION: Yes Soft to palpation and Yes No hepatosplenomegaly present Neuro: COMMON NORMALS: patient oriented x3 SENSORIUM/ORIENTATION: Yes alert Course 2 Vital Signs: Vital signs: Vital Signs Temperature 98.1 F 11/28/24 22:44 Pulse Rate 63 11/29/24 00:35 Respiratory Rate 18 11/29/24 00:35 Blood Pressure 171/94 11/29/24 00:35 Pulse Oximetry 96 11/29/24 00:35 Oxygen Delivery Me thod Room Air 11/29/24 00:35 MDM - Chest Pain Medical Decision Making Patient presents to the ER with chest pain that radiated to both arms. Patient was worked up in standard chest pain fashion with serial EKGs, serial troponins, lab work chest x-ray, all of which was essentially benign. Patient will be discharged home. Medical Records I reviewed the patient's medical records. Lab Data I reviewed the patient's lab results. 11/28/24 23:05 11/28/24 23:05 Radiology Impressions Chest X-Ray 11/28/24 22:47 IMPRESSION: No acute findings. Laboratory Results WBC 11.00 10^3/uL (3.29-11.43) 11/28/24 23:05 RBC 4.87 10^6/uL (3.85-5.65) 11/28/24 23:05 Hgb 14.60 g/dL (11.27-16.99) 11/28/24 23:05 Hct 45.4 % (36-47) 11/28/24 23:05 MCV 93.2 fl (85-98) 11/28/24 23:05 MCH 30.0 pg (27-33) 11/28/24 23:05 MCHC 32.2 g/dL (30-55) 11/28/24 23:05 RDW 13.2 % (12.1-15.1) 11/28/24 23:05 Plt Count 277 10^3/cmm (157-399) 11/28/24 23:05 MPV 9.4 fL (7.4-10.4) 11/28/24 23:05 Neut % (Auto) 62.2 % 11/28/24 23:05 Lymph % (Auto) 27.5 % 11/28/24 23:05 [place] % (Auto) 7.1 % 11/28/24 23:05 Eos % (Auto) 1.8 % 11/28/24 23:05 Baso % (Auto) 0.7 % 11/28/24 23:05 Neut # (Auto) 6.84 10^3/uL (1.8-7.7) 11/28/24 23:05 Lymph # (Auto) 3.0 10^3/uL (0.8-4.8) 11/28/24 23:05 [place] # (Auto) 0.8 10^3/uL (0.2-0.9) 11/28/24 23:05 Eos # (Auto) 0.2 10^3/uL (0.0-0.8) 11/28/24 23:05 Baso # (Auto) 0.1 10^3/uL (0.0-0.1) 11/28/24 23:05 Nucleated RBC % (auto) 0 % 11/28/24 23:05 Nucleated RBCs # 0.0 /100WBC 11/28/24 23:05 PT 12.30 SECONDS (12.1-14.9) 11/28/24 23:05 INR 0.89 (0.8-1.2) 11/28/24 23:05 Sodium 141 mmol/L (136-145) 11/28/24 23:05 Potassium 3.6 mmol/L (3.5-5.1) 11/28/24 23:05 Chloride 104 mmol/L (98-107) 11/28/24 23:05 Carbon Dioxide 27 mmol/L (22-29) 11/28/24 23:05 Anion Gap 13.6 (5-19) 11/28/24 23:05 BUN 15 mg/dL (6-20) 11/28/24 23:05 Creatinine 0.8 mg/dL (0.5-0.9) 11/28/24 23:05 GFR Calculation 75.3 mL/min (90-130) L 11/28/24 23:05 Glucose 118 mg/dL (65-115) H 11/28/24 23:05 Calculated Osmolality 294 mOsm/kg (285-295) 11/28/24 23:05 Calcium 8.6 mg/dL (8.5-10.5) 11/28/24 23:05 Total Bilirubin 0.2 mg/dL (0.15-1.2) 11/28/24 23:05 AST 13 U/L (0-32) 11/28/24 23:05 ALT 11 U/L (0-33) 11/28/24 23:05 Alkaline Phosphatase 160 U/L (35-105) H 11/28/24 23:05 Troponin T Baseline < 6 ng/L (0-10) 11/28/24 23:05 Troponin T 120 Minute 6.00 ng/L (0-10) 11/29/24 01:02 Delta Troponin T 0.14056 ABS# (0-10) 11/29/24 01:02 Total Protein 6.2 g/dL (6.6-8.7) L 11/28/24 23:05 Albumin 3.8 g/dL (3.5-5.2) 11/28/24 23:05 Globulin 2.4 g/dL (1.3-4.6) 11/28/24 23:05 Lipase 31 U/L (13-60) 11/28/24 23:05 All radiology interpretation(s) finalized by discharge Discharge Plan Discharge Patient Disposition: Home Clinical Impression: Atypical chest pain Hypertension Qualifiers: Hypertension type: unspecified Qualified Code(s): I10 - Essential (primary) hypertension Condition: Stable Prescriptions: No Action escitalopram oxalate 20 mg tablet 20 mg PO DAILY lisinopril 20 mg tablet 20 mg PO DAILY aspirin [Adult Low Dose Aspirin] 81 mg tablet,delayed release (DR/EC) 81 mg PO DAILY hydralazine 10 mg tablet 10 mg PO BID PRN (Reason: hypertension) Qty: 60 3RF Rx Instructions: Take if systolic greater than 160, up to twice a day metoprolol succinate 50 mg tablet extended release 24 hr 25 mg PO DAILY Discharge Orders: Discharge ED (Routine); Ordered 11/29/24 Ordered By: Nile Chow Referrals: Toya Doan MD [Primary Care Provider] - 1 week Patient Instructions: Chest Pain (DC), Hypertension (ED) Activity Restrictions/Additional Instructions: Your evaluation ER did not show any acute cardiac cause of your chest pain. Your chest pain is felt to be noncardiac in nature. Your blood pressure was elevated in the ER. You are given medicine to bring it down. Please keep a blood pressure log and take it with you to your next appointment with your family practice doc within the next 7 to 10 days for further evaluation and treatment. Coding Level of Care Code ED Hearing Examiner for Christi Tsai
[2024-11-28 23:22] LABS: INR 0.89 (0.8-1.2)
[2024-11-28 23:28] LABS: Troponin(5th) Baseline < 6 ng/L (0-10)
[2024-11-28 23:36] LABS: Alanine Aminotransferase 11 U/L (0-33); Albumin Level 3.8 g/dL (3.5-5.2); Alkaline Phosphatase 160 U/L (35-105); Anion Gap 13.6 (5-19); Aspartate Amino Transferase 13 U/L (0-32); Blood Urea Nitrogen 15 mg/dL (6-20); Calcium 8.6 mg/dL (8.5-10.5); Carbon Dioxide 27 mmol/L (22-29); Chloride 104 mmol/L (98-107); Creatinine Clr Calc Pharmacy 100.9603; Globulin 2.4 g/dL (1.3-4.6); Glomerular Filtration Rate 75.3 mL/min (90-130); Glucose 118 mg/dL (65-115); Lipase 31 U/L (13-60); Osmolality Calculated 294 mOsm/kg (285-295); Potassium 3.6 mmol/L (3.5-5.1); Sodium 141 mmol/L (136-145); Total Bilirubin 0.2 mg/dL (0.15-1.2); Total Protein 6.2 g/dL (6.6-8.7)
[2024-11-29 00:35] VITALS: BP 171/94; PULSE 63; RESP 18; O2SAT 96
--- NOTE | 2024-11-29 00:47 | ECG_ITS ---
[email or web address]29 Pat Name: Rylie Isidro Department: Room: Gender: Female Care Specialist: : 1970 Requested By: Candido Coley Order Number: [id number] Jane MD: Oleg Macario M.D. Measurements Intervals [place] Rate: 54 P: 5 [place]: 193 QRS: -19 QRSD: 100 T: -17 QT: 421 QTc: 401 Interpretive Statements SINUS BRADYCARDIA LOW QRS VOLTAGE IN PRECORDIAL LEADS [QRS DEFLECTION < 1.0 mV IN CHEST LEADS] POSSIBLE ANTERIOR MYOCARDIAL INFARCTION , OF INDETERMINATE AGE [30 ms Q WAVE IN V3/V4, OR R < 0.2 mV IN V4] Compared to ECG 11/28/2024 22:48:33 Sinus rhythm no longer present Myocardial infarct finding still present Electronically Signed On 11-29-2024 16:52:06 PROFESSOR OF SPECIAL EDUCATION by Oleg Macario M.D. [id number]
[2024-11-29 01:28] LABS: Troponin 5 2HR Delta 0.00001 ABS# (0-10)
[2024-11-29 01:39] VITALS: BP 193/134
[2024-11-29] MEDS: cloNIDine 0.1 mg Tablet 0.2 MG PO (01:39)
[2024-11-29] MEDS: hyDRALAzine 20 mg/mL INJ 1 mL IVP (02:16)
[2024-11-29 02:47] VITALS: BP 128/67; PULSE 75; RESP 19; O2SAT 96
== END 2024-11-29 02:49 | disposition home or self-care (01) ==
PROVIDERS: Emergency Medicine; Emergency Provider Emergency Medicine; PCP Family Medicine
DX: R07.89 Other chest pain (principal); I10 Essential (primary) hypertension; I25.10 Atherosclerotic heart disease of native coronary artery without angina pectoris
CPT/HCPCS: 36415; 71045; 80053; 83690; 84484; 85025; 85610; 93005; 96374; 99285; J0360

== ENCOUNTER 2024-12-29 14:45 | Emergency (ER) | payer OTHER, SELFPAY ==
--- NOTE | 2024-12-29 14:46 | XR_ITS ---
WS: [id number] Exam: XR chest 1V portable [id number] Date/Time of Exam: 12/29/2024 2:46 PM Reason For Exam: cp Comparison 11/28/2024. The lungs are clear and fully expanded. Normal cardiomediastinal silhouette and regional bony element s. No pleural effusion. XR/XR chest 1V portable [id number] IMPRESSION: 1. Negative chest.
--- NOTE | 2024-12-29 14:46 | ECG_ITS ---
[facility] Date: 2024-12-29 Pat Name: Rylie Isidro Department: Room: Gender: Female Grocery Shopper: : 1970 Requested By: Candido Coley Order Number: [id number] Jane MD: Oleg Macario M.D. Measurements Intervals [place] Rate: 57 P: 33 RI: 176 QRS: 1 QRSD: 92 T: 13 QT: 397 QTc: 388 Interpretive Statements SINUS BRADYCARDIA LOW QRS VOLTAGE IN PRECORDIAL LEADS [QRS DEFLECTION < 1.0 mV IN CHEST LEADS] POSSIBLE ANTERIOR MYOCARDIAL INFARCTION , PROBABLY OLD [30 ms Q WAVE IN V3/V4, OR R < 0.2 mV IN V4] Compared to ECG 11/29/2024 00:47:06 No significant changes Electronically Signed On 12-30-2024 11:15:26 WARE SERVER by Oleg Macario M.D. [id number]
[2024-12-29 14:50] VITALS: BP 186/86; PULSE 58; RESP 16; TEMP 36.6; O2SAT 97; BMI 41.5
--- NOTE | 2024-12-29 14:54 | ED_ITS ---
HPI - Chest Pain 2 General: Chief Complaint: Chest Pain Stated Complaint: chest Pain Time Seen by Provider: 12/29/24 14:45 Source: patient Mode of arrival: ambulatory Limitations: no limitations History of Present Illness: 34-year-old female who states she has be en having chest pain since the weekend states pains been intermittent. Had chest pain at work today she is given nitro and aspirin is currently pain-free. She denies any nausea denies any shortness of breath denies any cough or fever. Associated symptoms: Deny abdominal pain, dyspnea, fever(s), nausea or vomiting Related Data Home Medications Medication Instructions Recorded Confirmed aspirin 81 mg tablet,delayed 81 mg PO QPM 05/07/23 12/29/24 release (Adult Low Dose Aspirin) escitalopram oxalate 20 mg tablet 20 mg PO QPM 05/07/23 12/29/24 lisinopril 20 mg tablet 20 mg PO QPM 05/07/23 12/29/24 metoprolol succinate 50 mg 100 mg PO QPM 06/18/23 12/29/24 tablet,extended release 24 hr ferrous sulfate 325 mg (65 mg 325 mg PO QPM 12/29/24 12/29/24 iron) tablet nifedipine 90 mg tablet,extended 90 mg PO QPM 12/29/24 12/29/24 release Allergies Allergy/AdvReac Type Severity Reaction Status Date / Time Penicillins Allergy Mild ALGY-Rash Verified 06/18/23 11:05 Review of Systems 2 Const: Denies: fever(s), chills, body aches or change in appetite ENMT: Denies: throat pain or dental pain Card: Reports: chest pain Resp: Denies: dyspnea GI: Denies: abdominal pain, nausea, vomiting or diarrhea Musc: Denies: neck pain or back pain Skin/Breast: Denies: rash Neuro: Denies: headache(s) PFSH ED 2 PFSH: Medical History (Updated 12/29/24 @ 17:33 by Candido Coley MD) Renal cyst, right Hydronephrosis, left Calculus of distal ureter Coronary artery disease Depression Hypertension Surgical History H/O cardiac catheterization Previous section H/O gastric bypass Family History Mother CAD (coronary artery disease) Father , 72 CAD (coronary artery disease) Diabetes Myocardial infarction Social History Smoking and tobacco/nicotine status: never used tobacco/nicotine Alcohol intake: never Substance/Drug Use: never Marital status: Single Physical Exam 2 Const: COMMON NORMALS: no acute distress, patient oriented x3 and healthy appearing HENMT: COMMON NORMALS: normocephalic and atraumatic HEAD & SCALP: n ormocephalic and atraumatic Eye: COMMON NORMALS: Equal, round and reactive pupils present and EOMs intact bilaterally PUPIL: Yes Equal, round and reactive pupils present Neck/C-Spine: COMMON NORMALS: full ROM Chest: COMMONS NORMALS: normal inspection of the chest Resp: COMMON NORMALS: normal respiratory effort Cardio: COMMON NORMALS: regular rate, regular rhythm and No murmurs present (Cardio) RATE: regular rate RHYTHM: regular rhythm GI: COMMON NORMALS: Normal to inspection, nondistended, normoactive bowel sounds present, Soft to palpation, non-tender and no masses PALPATION: Yes Soft to palpation Extremity: COMMON NORMALS: normal to inspection and full ROM Neuro: COMMON NORMALS: patient oriented x3, moves all extremities and no focal motor deficits Psych: COMMON NORMALS: mental status grossly normal, Normal thought process present and cooperative THOUGHT PROCESS: Normal thought process present Skin: COMMON NORMALS: no rashes or lesions noted and no wounds GENERAL SKIN EXAM: no rashes or lesions noted Course 2 Vital Signs: Vital signs: Vital Signs Temperature 97.8 F 12/29/24 14:50 Pulse Rate 59 L 12/29/24 15:51 Respiratory Rate 18 12/29/24 15:51 Blood Pressure 173/92 12/29/24 15:51 Pulse Oximetry 92 12/29/24 15:51 Oxygen Delivery Me thod Room Air 12/29/24 15:51 MDM - Chest Pain Medical Decision Making Patient presents here chest pain is since resolved here her initial repeat troponins here are negative she has no signs of acute coronary syndrome no signs of dissection or pulmonary embolism I will put in a referral to cardiology she is to follow-up with PCP as well she is return if worsening she understands agrees to plan. Medical Records I reviewed the patient's medical records. Lab Data I reviewed the patient's lab results. 12/29/24 14:35 12/29/24 14:35 Radiology Impressions Chest X-Ray 12/29/24 14:46 IMPRESSION: 1. Negative chest. Laboratory Results WBC 10.83 10^3/uL (3.29-11.43) 12/29/24 14:35 RBC 4.85 10^6/uL (3.85-5.65) 12/29/24 14:35 Hgb 14.90 g/dL (11.27-16.99) 12/29/24 14:35 Hct 45.9 % (36-47) 12/29/24 14:35 MCV 94.6 fl (85-98) 12/29/24 14:35 MCH 30.7 pg (27-33) 12/29/24 14:35 MCHC 32.5 g/dL (30-55) 12/29/24 14:35 RDW 13.2 % (12.1-15.1) 12/29/24 14:35 Plt Count 343 10^3/cmm (157-399) 12/29/24 14:35 MPV 10.3 fL (7.4-10.4) 12/29/24 14:35 Neut % (Auto) 66.1 % 12/29/24 14:35 Lymph % (Auto) 24.3 % 12/29/24 14:35 [place] % (Auto) 6.2 % 12/29/24 14:35 Eos % (Auto) 1.9 % 12/29/24 14:35 Baso % (Auto) 0.6 % 12/29/24 14:35 Neut # (Auto) 7.16 10^3/uL (1.8-7.7) 12/29/24 14:35 Lymph # (Auto) 2.6 10^3/uL (0.8-4.8) 12/29/24 14:35 [place] # (Auto) 0.7 10^3/uL (0.2-0.9) 12/29/24 14:35 Eos # (Auto) 0.2 10^3/uL (0.0-0.8) 12/29/24 14:35 Baso # (Auto) 0.1 10^3/uL (0.0-0.1) 12/29/24 14:35 Nucleated RBC % (auto) 0 % 12/29/24 14:35 Nucleated RBCs # 0.0 /100WBC 12/29/24 14:35 PT 12.10 SECONDS (12.1-14.9) 12/29/24 14:35 INR 0.83 (0.8-1.2) 12/29/24 14:35 Sodium 138 mmol/L (136-145) 12/29/24 14:35 Potassium 3.7 mmol/L (3.5-5.1) 12/29/24 14:35 Chloride 100 mmol/L (98-107) 12/29/24 14:35 Carbon Dioxide 25 mmol/L (22-29) 12/29/24 14:35 Anion Gap 16.7 (5-19) 12/29/24 14:35 BUN 24 mg/dL (6-20) H 12/29/24 14:35 Creatinine 0.8 mg/dL (0.5-0.9) 12/29/24 14:35 GFR Calculation 75.3 mL/min (90-130) L 12/29/24 14:35 Glucose 136 mg/dL (65-115) H 12/29/24 14:35 Calculated Osmolality 292 mOsm/kg (285-295) 12/29/24 14:35 Calcium 9.2 mg/dL (8.5-10.5) 12/29/24 14:35 Total Bilirubin 0.2 mg/dL (0.15-1.2) 12/29/24 14:35 AST 18 U/L (0-32) 12/29/24 14:35 ALT 17 U/L (0-33) 12/29/24 14:35 Alkaline Phosphatase 160 U/L (35-105) H 12/29/24 14:35 Troponin T Baseline < 6 ng/L (0-10) 12/29/24 14:35 Troponin T 120 Minute 6.00 ng/L (0-10) 12/29/24 16:27 Delta Troponin T 0.06537 ABS# (0-10) 12/29/24 16:27 Total Protein 7.3 g/dL (6.6-8.7) 12/29/24 14:35 Albumin 4.1 g/dL (3.5-5.2) 12/29/24 14:35 Globulin 3.2 g/dL (1.3-4.6) 12/29/24 14:35 Lipase 36 U/L (13-60) 12/29/24 14:35 All radiology interpretation(s) finalized by discharge EKG Data EKG 1: I personally reviewed and interpreted this EKG as follows: EKG interpretation date: 12/29/24 EKG interpretation time: 14:47 Interpretation: sinus sana hr [address] elevation qrs 92 qtc 391 EKG 2: I personally reviewed and interpreted this EKG as follows: EKG interpretation date: 12/29/24 EKG interpretation time: 16:30 Interpretation: sinus sana hr [address] elevation qrs 90 qtc 393 Discharge Plan Discharge Patient Disposition: Home Clinical Impression: Chest pain Condition: Stable Prescriptions: No Action escitalopram oxalate 20 mg tablet 20 mg PO QPM lisinopril 20 mg tablet 20 mg PO QPM aspirin [Adult Low Dose Aspirin] 81 mg tablet,delayed release (DR/EC) 81 mg PO QPM metoprolol succinate 50 mg tablet extended release 24 hr 100 mg PO QPM nifedipine 90 mg tablet extended release 90 mg PO QPM ferrous sulfate 325 mg (65 mg iron) Tablet 325 mg PO QPM Discharge Orders: Discharge ED (Routine); Ordered 12/29/24 Ordered By: Candido Coley Referrals: Toya Doan MD [Primary Care Provider] - 1-3 days Discharge Diet: Advance as tolerated Discharge Activity: Resume usual activity Patient Instructions: Chest Pain (ED) Coding Level of Care Code ED Acute Care Certified Nursing Assistant for Christi Tsai
[2024-12-29 15:08] LABS: Basophils # 0.1 10^3/uL (0.0-0.1); Basophils % 0.6 %; Eosinophils # 0.2 10^3/uL (0.0-0.8); Eosinophils % 1.9 %; Hematocrit 45.9 % (36-47); Lymphocytes # 2.6 10^3/uL (0.8-4.8); Lymphocytes % 24.3 %; Mean Corpuscular HGB Conc 32.5 g/dL (30-55); Mean Corpuscular Hemoglobin 30.7 pg (27-33); Mean Corpuscular Volume 94.6 fl (85-98); Mean Platelet Volume 10.3 fL (7.4-10.4); Monocytes # 0.7 10^3/uL (0.2-0.9); Monocytes % 6.2 %; Neutrophils # 7.16 10^3/uL (1.8-7.7); Neutrophils % 66.1 %; Nucleated Red Blood Cells % 0 %; Platelet Count 343 10^3/cmm (157-399); Red Blood Count 4.85 10^6/uL (3.85-5.65); Red Cell Distribution Width 13.2 % (12.1-15.1); White Blood Count 10.83 10^3/uL (3.29-11.43)
[2024-12-29 15:15] LABS: INR 0.83 (0.8-1.2)
[2024-12-29 15:22] LABS: Troponin(5th) Baseline < 6 ng/L (0-10)
[2024-12-29 15:38] LABS: Alanine Aminotransferase 17 U/L (0-33); Albumin Level 4.1 g/dL (3.5-5.2); Alkaline Phosphatase 160 U/L (35-105); Anion Gap 16.7 (5-19); Aspartate Amino Transferase 18 U/L (0-32); Blood Urea Nitrogen 24 mg/dL (6-20); Calcium 9.2 mg/dL (8.5-10.5); Carbon Dioxide 25 mmol/L (22-29); Chloride 100 mmol/L (98-107); Creatinine Clr Calc Pharmacy 103.3165; Globulin 3.2 g/dL (1.3-4.6); Glomerular Filtration Rate 75.3 mL/min (90-130); Glucose 136 mg/dL (65-115); Lipase 36 U/L (13-60); Osmolality Calculated 292 mOsm/kg (285-295); Potassium 3.7 mmol/L (3.5-5.1); Sodium 138 mmol/L (136-145); Total Bilirubin 0.2 mg/dL (0.15-1.2); Total Protein 7.3 g/dL (6.6-8.7)
[2024-12-29 15:51] VITALS: BP 173/92; PULSE 59; RESP 18; O2SAT 92
--- NOTE | 2024-12-29 16:30 | ECG_ITS ---
[employer] Test Date: 2024-12-29 Pat Name: Rylie Isidro Department: Room: Gender: Female Physician Assistant Psychiatry: : 1970 Requested By: Candido Coley Order Number: [id number] Jane MD: Oleg Macario M.D. Measurements Intervals [place] Rate: 51 P: 0 [place]: 185 QRS: 0 QRSD: 90 T: 13 QT: 417 QTc: 385 Interpretive Statements SINUS BRADYCARDIA LOW QRS VOLTAGE IN PRECORDIAL LEADS [QRS DEFLECTION < 1.0 mV IN CHEST LEADS] POSSIBLE ANTERIOR MYOCARDIAL INFARCTION , OF INDETERMINATE AGE [30 ms Q WAVE IN V3/V4, OR R < 0.2 mV IN V4] Compared to ECG 12/29/2024 14:47:30 No significant changes Electronically Signed On 01-01-2025 13:42:27 BINDERY MACHINE SETTER by Oleg Macario M.D. [id number]
[2024-12-29 17:29] LABS: Troponin 5 2HR Delta 0.00001 ABS# (0-10)
[2024-12-29 17:50] VITALS: BP 185/99; PULSE 54; RESP 16; O2SAT 95
--- NOTE | 2024-12-31 00:16 | DCPLANNER ---
Message sent to Cardiology for follow up
== END 2024-12-29 17:59 | disposition home or self-care (01) ==
PROVIDERS: Emergency Provider Emergency Medicine; PCP Family Medicine
DX: R07.9 Chest pain, unspecified (principal); Z79.82 Long term (current) use of aspirin; I10 Essential (primary) hypertension; I25.10 Atherosclerotic heart disease of native coronary artery without angina pectoris
CPT/HCPCS: 36415; 71045; 80053; 83690; 84484; 85025; 85610; 93005; 99285

== ENCOUNTER 2025-03-30 07:57 | Outpatient (CLI) | payer OTHER, SELFPAY ==
--- NOTE | 2025-03-30 08:00 | MM_ITS ---
WS: [id number] BILATERAL SCREENING DIGITAL TOMOSYNTHESIS MAMMOGRAM WITH CAD HISTORY: SCREENING COMPARISON: 04/27/2024, 03/25/2024, 11/10/2018 Bilateral CC and MLO views with tomosynthesis and synthetic mammography submitted. Computer aided detection analyzed. Breast composition: There are scattered areas of fibroglandular density. No suspicious masses, microcalcifications or architectural distortion. Benign scattered calcifications in each breast. MM/MM scr tomosynthesis [id number] IMPRESSION: BI-RADS: 2 - Benign. FOLLOW UP: 1 Year Follow-up
== END 2025-03-30 07:58 | disposition home or self-care (01) ==
LOC: MOBLMAM 08:01
PROVIDERS: PCP Family Medicine; Visit Provider Family Medicine
DX: Z12.31 Encounter for screening mammogram for malignant neoplasm of breast (principal); R92.323 Mammographic fibroglandular density, bilateral breasts; R92.1 Mammographic calcification found on diagnostic imaging of breast
CPT/HCPCS: 77063; 77067

== ENCOUNTER 2025-06-06 15:56 | Outpatient (CLI) | payer OTHER, SELFPAY | END 2025-06-06 15:57 | disposition home or self-care (01) | LOC: SLEEP 15:57 | PROVIDERS: PCP Family Medicine; Referring Provider Internal Medicine Cardiovascular Disease; Visit Provider Internal Medicine Pulmonary Disease | DX: G47.33 Obstructive sleep apnea (adult) (pediatric) (principal) | CPT/HCPCS: G0399 ==

== ENCOUNTER → 2025-10-10 10:23 | Outpatient (BNVA) | payer OTHER, SELFPAY | PROVIDERS: PCP Family Medicine; Visit Provider Specialist | DX: G56.03 Carpal tunnel syndrome, bilateral upper limbs (principal) | CPT/HCPCS: 73110 ==